=== PATIENT | female | born 1960 | race Caucasian/White ===

== ENCOUNTER 2022-02-26 12:48 | Emergency (ER) | payer MEDICARE, MEDICAID ==
[~2022-02-26] VITALS: Ht 162.6 cm; Wt 90.7 kg
[2022-02-26] MEDS ORDERED: methylPREDNISolone 125 MG (Solu-MEDROL) VIAL IVP STA (13:14)
[2022-02-26] MEDS ORDERED: cefTRIAXone 1 GM PRE-MIX 50 ML IV STA (13:14)
[2022-02-26] MEDS ORDERED: AZITHROMYCIN 250 MG TAB (ZITHROMAX) PO STA (13:14)
--- NOTE | 2022-02-26 13:14 | ED Dyspnea ---
General Chief Complaint: Cough/Cold/Flu Symptoms Stated Complaint: SOB Source of Information: Patient, Caregiver ([place] staff member as independent historian) History of Present Illness Date Seen by Provider: Feb 26, 2022 Time Seen by Provider: 12:51 Initial Comments 61-year-old female presenting with complaints of increased shortness of breath as well as nasal drainage and thick mucus. She presents with a caregiver from [facility]. The caregiver acts as an independent historian and states that the patient is noncompliant with wearing her supplemental oxygen. She also reports that the patient has been having increased shortness of breath and when they checked her O2 sat a few days ago it was 79 to 80%. They encouraged her to come be seen then but she had refused. Today since she was more short of breath and continued to have low oxygen saturation at the assisted the advised her to come out and be seen and she agreed. After lunch they went ahead and brought her here to the emergency department. The caregiver also states that she is noncompliant with using her as needed albuterol treatments. She has not had any testing for influenza or COVID since her nasal congestion and cough with shortness of breath has worsened. Patient complains of having thick nasal drainage and congestion with increased cough. She is coughing up thick sputum with green color. She denies having fever or chills, nausea, vomiting, headache, sore throat, abdominal pain, pain with urination. She states that she does have pain to her left lateral chest wall from straining to reach things in her room as she sits in her recliner. Timing/Duration: 1 Week, Increasing Severity: Moderate Activities at Onset: None Prior Episodes/Possible Cause: Chronic Episodes, Frequent Episodes Modifying Factors: Worse With Activity; Improves With Oxygen Associated Symptoms: Cough, Wheezing Allergies and Home Medications Allergies Coded Allergies: Sulfa (Sulfonamide Antibiotics) (Verified Allergy, Unknown, 02/26/22) Patient Home Medication List Home Medication List Reviewed: Yes Nirmatrelvir/Ritonavir (Paxlovid 300-100 mg Pack (Eua)) 300 Mg (150 Mg X 2)-100 Mg Tab.ds.pk, 1 EACH PO BID Prescribed by: RAFAEL UMAÑA on 02/26/22 144 Prednisone (Prednisone) 20 Mg Tab, 40 MG PO DAILY Prescribed by: RAFAEL UMAÑA on 02/26/22 1444 Review of Systems Review of Systems Constitutional: No chills, No diaphoresis, No fever EENTM: nose congestion; No ear pain, No epistaxis, No throat pain, No throat swelling Respiratory: cough, dyspnea on exertion; No hemoptysis; phlegm, short of breath; No stridor; wheezing Cardiovascular: chest pain (left lateral chest wall pain that patient reports is from straining) Gastrointestinal: No nausea, No vomiting Genitourinary: No dysuria Musculoskeletal: see HPI (muscle strain with left lateral chest wall tenderness to palpation) Skin: No change in color, No rash Psychiatric/Neurological: No Symptoms Reported Endocrine: No Symptoms Reported Past Yhvuxql-Nqrtkw-Fytcwa Hx Patient Social History Tobacco Use?: Yes Tobacco type used: Cigarettes Smoking Status: Current Everyday Smoker Substance use?: No Alcohol Use?: No Past Medical History Surgery/Hospitalization HX: COPD, Breast cancer with left mastectomy, Tobacco abuse Surgeries: Yes Breast, Vascular Surgery (Port Placement) Physical Exam Vital Signs Vital Signs - First Documented 02/26/22 12:56 Temp 36.3 Pulse 80 Resp 20 B/P (MAP) 111/73 (86) Capillary Refill : Height, Weight, BMI Height: '" Weight: lbs. oz. kg; BMI Method: General Appearance: No Apparent Distress, Obese HEENT: PERRL/EOMI, Pharynx Normal, Moist Mucous Membranes Neck: Full Range of Motion, Normal Inspection, Non Tender, Supple Respiratory: No Chest Non Tender (tender to palpation left lateral chest wall); No Respiratory Distress, Accessory Muscle Use, Decreased Breath Sounds, Rhonci; No Stridor; Wheezing Cardiovascular: Regular Rate, Rhythm, No Murmur, Normal Peripheral Pulses Gastrointestinal: Normal Bowel Sounds, No Pulsatile Mass, Non Tender, Soft Rectal: Deferred Extremity: Normal Capillary Refill, Normal Inspection, No Calf Tenderness, No Pedal Edema Neurologic/Psychiatric: Alert, Oriented x3, personal driver II-XII Norm as Tested Skin: Normal Color, Warm/Dry Focused Exam Lactate Level 02/26/22 13:18: Lactic Acid Level 0.99 Lactic Acid Level Laboratory Tests Test 02/26/22 13:18 Lactic Acid Level 0.99 MMOL/L (0.50-2.00) Progress/Results/Core Measures Results/Orders Lab Results Laboratory Tests Test 02/26/22 13:05 02/26/22 13:11 02/26/22 13:18 02/26/22 13:20 Range/Units Influenza Type A (RT-PCR) Not Detected Not Detecte Influenza Type B (RT-PCR) Not Detected Not Detecte SARS-CoV-2 RNA (RT-PCR) Detected H Not Detecte White Blood Count 8.2 4.3-11.0 10^3/uL Red Blood Count 4.53 3.80-5.11 10^6/uL Hemoglobin 15.0 11.5-16.0 g/dL Hematocrit 45 35-52 % Mean Corpuscular Volume 100 H 80-99 fL Mean Corpuscular Hemoglobin 33 25-34 pg Mean Corpuscular Hemoglobin Concent 33 32-36 g/dL Red Cell Distribution Width 13.8 10.0-14.5 % Platelet Count 248 130-400 10^3/uL Mean Platelet Volume 8.5 L 9.0-12.2 fL Immature Granulocyte % (Auto) 0 % Neutrophils (%) (Auto) 74 42-75 % Lymphocytes (%) (Auto) 15 12-44 % Monocytes (%) (Auto) 9 0-12 % Eosinophils (%) (Auto) 1 0-10 % Basophils (%) (Auto) 0 0-10 % Neutrophils # (Auto) 6.1 1.8-7.8 10^3/uL Lymphocytes # (Auto) 1.3 1.0-4.0 10^3/uL Monocytes # (Auto) 0.7 0.0-1.0 10^3/uL Eosinophils # (Auto) 0.1 0.0-0.3 10^3/uL Basophils # (Auto) 0.0 0.0-0.1 10^3/uL Immature Granulocyte # (Auto) 0.0 0.0-0.1 10^3/uL Sodium Level 137 135-145 MMOL/L Potassium Level 4.3 3.6-5.0 MMOL/L Chloride Level 95 L 98-107 MMOL/L Carbon Dioxide Level 32 21-32 MMOL/L Anion Gap 10 5-14 MMOL/L Blood Urea Nitrogen 12 7-18 MG/DL Creatinine 0.72 0.60-1.30 MG/DL Estimat Glomerular Filtration Rate 94 BUN/Creatinine Ratio 17 Glucose Level 105 70-105 MG/DL Calcium Level 9.8 8.5-10.1 MG/DL Corrected Calcium 10.0 8.5-10.1 MG/DL Magnesium Level 1.8 1.6-2.4 MG/DL Total Bilirubin 0.4 0.1-1.0 MG/DL Aspartate Amino Transf (AST/SGOT) 29 5-34 U/L Alanine Aminotransferase (ALT/SGPT) 30 0-55 U/L Alkaline Phosphatase 127 40-136 U/L Troponin I < 0.30 <0.30 NG/ML C-Reactive Protein 5.49 H <0.50 MG/DL Pro-B-Type Natriuretic Peptide 463.0 H <125.0 PG/ML Total Protein 7.4 6.4-8.2 GM/DL Albumin 3.8 3.2-4.5 GM/DL Lactic Acid Level 0.99 0.50-2.00 MMOL/L Bedside Blood Gas pH (LAB) 7.401 7.310-7.410 Bedside Blood Gas pCO2 (LAB) 49.7 41.0-51.0 mmHg Bedside Blood Gas pO2 (LAB) 66 L 80-105 mmHg Bedside Blood Gas HCO3 (LAB) 30.8 H 23.0-28.0 mmol/L POC Blood Gas Total CO2 Calc 32 H 24-29 mmol/L Bedside Bl Gas O2 Saturation (Calc) 92 L 95-98 % Bedside Arterial Blood Base Excess 6 H -2-3 mmol/L My Orders Orders - RAFAEL UMAÑA MD Cbc With Automated Diff (02/26/22 13:08) Comprehensive Metabolic Panel (02/26/22 13:08) Blood Culture (02/26/22 13:08) Chest 1 View Ap/Pa Only (02/26/22 13:08) Albuterol/Ipra Inhalation Soln (Duoneb I (02/26/22 13:15) Magnesium (02/26/22 13:08) Ekg Tracing (02/26/22 13:08) O2 (02/26/22 13:08) Ed Iv/Invasive Line Start (02/26/22 13:08) Monitor-Rhythm Ecg Trace Only (02/26/22 13:08) Crp Fs (02/26/22 13:08) Lactic Acid Analyzer (02/26/22 13:08) Svn Small Volume Nebulizer (02/26/22 13:08) Covid 19 Inhouse Test (02/26/22 13:08) Influenza A And B By Pcr (02/26/22 13:08) Isolation Central Supply Req (02/26/22 13:08) Methylprednisolone Sod Succ (Solu-Medrol (02/26/22 13:14) Ceftriaxone 1 Gm Pre-Mix (Rocephin 1 Gm (02/26/22 13:14) Azithromycin Tablet (Zithromax Tablet) (02/26/22 13:14) Probnp Fs (02/26/22 13:20) Troponin I Fs (02/26/22 13:20) Ed Admission (Communication) (02/26/22 14:03) Medications Given in ED Current Medications Medications Dose Ordered Sig/Wallace Route Start Time Stop Time Status Last Admin Dose Admin Albuterol/ Ipratropium 3 ml ONCE ONCE INH 02/26/22 13:15 02/26/22 13:16 DC 02/26/22 13:25 3 ML Vital Signs/I&O 02/26/22 02/26/22 02/26/22 02/26/22 12:56 12:56 12:56 15:04 Temp 36.3 36.7 Pulse 80 68 Resp 20 17 B/P (MAP) 111/73 (86) 157/86 Pulse Ox 92 92 94 O2 Delivery Nasal Cannula Nasal Cannula Nasal Cannula Nasal Cannula O2 Flow Rate 2.00 2.00 2.00 Progress Progress Note #1: Progress Note Patient is at risk of having life-threatening issues such as COPD exacerbation, pneumonia, pulmonary embolism, congestive heart failure, acute coronary syndrome, influenza. Will obtain nasal swab to check for influenza and COVID. Chest x-ray to evaluate for pneumonia, effusion, mass, cardiomegaly, infiltrate. CBC, chemistry, cardiac enzymes, ABG to further evaluate her breathing. Looking for signs of anemia, high white count for infection, elevated cardiac enzymes for myocardial infarction or ACS, electrolyte imbalance, renal failure, hepatic failure, acute on chronic respiratory failure. Give DuoNeb breathing treatment to help with her wheezing, cough, congestion, shortness of breath. Placed on supplemental oxygen to help raise her O2 sat above 89%. Solu-Medrol 125 mg IV x1 to help with COPD exacerbation and shortness of breath with wheezing. After obtaining blood cultures and lactic acid we will also administer Rocephin 1 g IV with Zithromax 500 mg p.o. x1 for possible community- acquired pneumonia. Progress Note #2: Time: 13:30 Progress Note On my review and personal interpretation of her 1 view chest x-ray she has increased lung markings especially on the right lower lobe. She has indwelling port on the right side she has no effusion or pneumothorax. She has no prior chest x-ray imaging for comparison. Progress Note #3: Time: 13:43 Progress Note Lab called to say that her nasal swab came back negative for influenza but she is positive for COVID. Her ABG on 3 L of supplemental oxygen showed a pH of 7.4, PCO2 of 50, PO2 of 66 for O2 sat of 92%. CBC does not show an elevated white blood cell count. She does not have anemia. Chemistry panel along with cardiac enzymes is still pending. Patient had some improvement in her oxygen saturation after being placed on supplemental O2 and given a breathing treatment. After this she came up to 90 to 92%. She has improved breathing but is still having increased work of breathing after duoneb and solumedrol. I reviewed her radiologist reading and it did not show acute infiltrate or effusion but had COPD changes present. 1359 d/w Dr. Frye, Hospitalist electron gun inspector, about admit since pt follows with a doctor from [place]. With her having continued increased work of breathing, COPD, Covid infection and O2 sat only coming up to 90-92% despite 3 Lpm O2 by nd, I felt she needed admit for increased respiratory treatments and steroids to help with her breathing from a Covid and COPD standpoint. He agreed and was willing to admit for acute on chronic respiratory failure. He requested ICU bed for admit since she had continued increased work of breathing despite supplemental oxygen, duoneb and solumedrol here in ED. I updated the patient about the plan and she was agreeable with admit. I tried to clarify with her about her Code status since she has not been admitted previously and we do not have any paperwork about her wishes. She said she would want her heart restarted and put on ventilator if she had to go through that, so will have her as a Full Code for now. She was concerned about how she would be transported back to [facility] when she is discharged and I advised her I would have the nurse check with caregiver from [facility] and if they can not transport her on Oxygen then she may need Case Management or Social Work to help arrange transport back to [facility] so that she can continue supplemental Oxygen. She asked about being allowed to smoke since she continues to smoke cigarettes and I told her that she would not be allowed to smoke in the ED or the hospital but I could order a Nicotine patch. Pt refused the Nicotine Patch. Progress Note #4: Time: 14:30 Progress Note Despite having extensive conversation with patient and explaining risks vs benefits of admit vs leaving against medical advice, the patient voiced understanding of the risks and benefits and stated she understood them but wanted to go back to [facility] and she would follow up with her doctor. Despite my best efforts to get her to change her mind she continued to refuse and was willing to sign paperwork for leaving against medical advice. Since I was not able to convince her to be admitted and she is leaving against medical advice will discharge her with steroid burst for her COPD exacerbation and send script for Paxlovid as an antiviral medicine for Covid. Give patient EUA information sheet about Paxlovid. Stressed importance of follow up and getting additional care, using her oxygen to help with her breathing, follow up with clinic for continued care. I updated the hospitalist, Dr. Frye, of patient's change of mind and decision to leave AMA. Initial ECG Impression Date: Feb 26, 2022 Initial ECG Impression Time: 13:39 Initial ECG Rate: 73 Initial ECG Rhythm: Normal Sinus Initial ECG Comparisson: No Previous ECG Available Comment On my personal review and interpretation of her electrocardiogram she has normal sinus rhythm with a heart rate of 73 bpm. WI interval [address] elevation. QT interval 361 ms with a QTc interval 387 ms. She has no prior tracing available for comparison. Diagnostic Imaging Diagonstic Imaging: Xray Plain Films/CT/US/NM/MRI: chest Comments NAME: [facility] REC#: [id number] PT STATUS: REG ER : 1960 PHYSICIAN: RAFAEL UMAÑA MD ADMIT DATE: 02/26/22/ER FS Draft Date of Exam:02/26/22 CHEST 1 VIEW AP/PA ONLY INDICATION: Cough. FINDINGS: Right IJ catheter in the lower SVC. Air trapping and COPD, chronic. There is no failure, effusion, or pneumothorax. IMPRESSION: Central line in good position. Likely COPD and air trapping with clear lungs and no acute pleural pathology. Dictated on workstation # [id number] Dict: 02/26/22 1342 Trans: 02/26/22 1345 [id number] [id number] Interpreted by: CHANEL CONTRERAS Electronically signed by: Reviewed: Reviewed by Me Critical Care Note Critical Care Total Time (minutes) 50 minutes Progress 50 minutes of critical care time was spent with the patient. Time excludes separately billable procedures. Time spent obtaining history from patient and independent source of NH caregiver, ordering tests and reviewing results, ordering interventions and reviewing response, discussion with consultants, extensive discussion with the patient about risk versus benefit of admission versus going back to the assisted, documentation in the chart. Patient was at risk of cardiorespiratory compromise and from hypoxia and increased wo rk of breathing with her acute on chronic respiratory failure with COVID and COPD. Departure Impression Primary Impression: Acute on chronic respiratory failure with hypoxia Additional Impressions: COVID-19 Hypoxia COPD with exacerbation Upper respiratory infection with cough and congestion Shortness of breath Disposition: 07 AGAINST MEDICAL ADVICE Condition: Against Medical Advice Departure-Patient Inst. Decision time for Depature: 14:40 Referrals: HENRY ACUNA MD (PCP) Primary Care Physician Patient Instructions: COPD Exacerbation, Adult ED, COVID-19 ED, How to Use a Metered Dose Inhaler ED, How to Use a Nebulizer ED, Leaving Against Medical Advice, Nirmatrelvir and Ritonavir FDA Fact Sheet Add. Discharge Instructions: You are signing out Against Medical Advice from the Emergency Department and refusing admission to the hospital for your low oxygen, COVID 19 infection, and COPD exacerbation. You should seek medical care for worsening symptoms and follow up as soon as possible about your breathing and low oxygen. You should continue on your home medicines and use your Albuterol treatments every 4 hours to help with your breathing. Take Mucinex to help with congestion and cough. You could take the Paxlovid (antiviral medicine for Covid) and Prednisone to try and help with your COPD and breathing. All discharge instructions reviewed with patient and/or family. Voiced understanding. Scripts Prednisone (Prednisone) 20 Mg Tab 40 MG PO DAILY for COPD exacerbation/COVID for 5 Days, #10 TAB 0 Refills Prov: RAFAEL UMAÑA MD 02/26/22 Nirmatrelvir/Ritonavir (Paxlovid 300-100 mg Pack (Eua)) 300 Mg (150 Mg X 2)-100 Mg Tab.ds.pk 1 EACH PO BID for COVID for 5 Days, #1 PKG 0 Refills Take as directed on package Prov: RAFAEL UMAÑA MD 02/26/22 RAFAEL UMAÑA MD Feb 26, 2022 13:14
[2022-02-26] MEDS ORDERED: RT-ALBUTEROL/IPRATROPIUM 3 ML (DUONEB) VIAL INH ONE (13:15)
[2022-02-26 13:28] LABS: BASOPHILS % (AUTO) 0 % (0-10); EOSINOPHILS # (AUTO) 0.1 10^3/uL (0.0-0.3); EOSINOPHILS % (AUTO) 1 % (0-10); HEMATOCRIT 45 % (35-52); LYMPHOCYTES # (AUTO) 1.3 10^3/uL (1.0-4.0); LYMPHOCYTES % (AUTO) 15 % (12-44); MEAN CORPUSCULAR HEMOGLOBIN 33 pg (25-34); MEAN CORPUSCULAR HGB CONC 33 g/dL (32-36); MEAN CORPUSCULAR VOLUME 100 fL (80-99); MEAN PLATELET VOLUME 8.5 fL (9.0-12.2); MONOCYTES # (AUTO) 0.7 10^3/uL (0.0-1.0); MONOCYTES % (AUTO) 9 % (0-12); NEUTROPHILS # (AUTO) 6.1 10^3/uL (1.8-7.8); NEUTROPHILS % (AUTO) 74 % (42-75); PLATELET COUNT 248 10^3/uL (130-400); WHITE BLOOD COUNT 8.2 10^3/uL (4.3-11.0)
[2022-02-26 13:45] LABS: ALBUMIN 3.8 GM/DL (3.2-4.5); BILIRUBIN,TOTAL 0.4 MG/DL (0.1-1.0); CALCIUM 9.8 MG/DL (8.5-10.1); CREATININE SERUM 0.72 MG/DL (0.60-1.30); MAGNESIUM 1.8 MG/DL (1.6-2.4); POTASSIUM 4.3 MMOL/L (3.6-5.0); TOTAL PROTEIN 7.4 GM/DL (6.4-8.2)
--- NOTE | 2022-02-26 13:45 | Diagnostic Imaging Report ---
INDICATION: Cough. FINDINGS: Right IJ catheter in the lower SVC. Air trapping and COPD, chronic. There is no failure, effusion, or pneumothorax. IMPRESSION: Central line in good position. Likely COPD and air trapping with clear lungs and no acute pleural pathology. Dictated by: Dictated on workstation # [id number]
[2022-02-26] MEDS ORDERED: NIRM1TAB PO (14:44)
[2022-02-26] MEDS ORDERED: PRD20T PO (14:44)
[2022-02-26 15:04] VITALS: BP 157/86
== END 2022-02-26 15:04 | disposition left against medical advice (07) ==
LOC: ER FS 12:50
DX: U07.1 COVID-19 (principal); J96.21 Acute and chronic respiratory failure with hypoxia; J44.1 Chronic obstructive pulmonary disease with (acute) exacerbation; J06.9 Acute upper respiratory infection, unspecified; F17.210 Nicotine dependence, cigarettes, uncomplicated; Z99.81 Dependence on supplemental oxygen
CPT/HCPCS: 36415; 71045; 80053; 82805; 83605; 83735; 83880; 84484; 85025; 86141; 87040; 87636; 93005; 93041

== ENCOUNTER → 2022-04-23 | Outpatient (CLI) | payer MEDICARE, MEDICAID ==
[~2022-04-23] MED LIST: NIRM1TAB PO; PRD20T PO
--- NOTE | 2022-04-23 15:59 | Diagnostic Imaging Report ---
INDICATION: Back pain EXAM: PA and lateral chest Heart size and pulmonary vascularity are normal. The lungs are clear. There is a tiny left effusion. There are old rib fractures of the right thoracic cage. Right IJ Port-A-Cath tip projects over the SVC. There are compression fractures of T6 and T7 and mild loss of height of T10. IMPRESSION: Thoracic compression fractures. Old right rib fractures. Small left pleural effusion. Dictated by: Dictated on workstation # [id number]
--- NOTE | 2022-04-23 15:59 | Diagnostic Imaging Report ---
INDICATION: Back pain. EXAMINATION: Thoracic spine. FINDINGS: AP and lateral views of the thoracic spine show compression fractures in the upper thoracic spine at T6 and T7. There is also slight loss of height of T10. IMPRESSION: Compression fractures of T6, T7 and T10 of indeterminate age. Dictated by: Dictated on workstation # [id number]
--- NOTE | 2022-04-23 15:59 | Diagnostic Imaging Report ---
INDICATION: Right rib pain. FINDINGS: Three views of the right ribs show what appear to be old fractures of the right mid lateral thoracic cage. There is no acute displaced rib fracture. There is no effusion or pneumothorax. IMPRESSION: Old healed rib fracture of the right mid thoracic cage. Dictated by: Dictated on workstation # [id number]
--- NOTE | 2022-04-23 16:00 | Diagnostic Imaging Report ---
INDICATION: Left rib pain. FINDINGS: Two views of the left ribs show no displaced fracture. There is a tiny left effusion. IMPRESSION: Small left pleural effusion. There is no rib fracture seen. Dictated by: Dictated on workstation # [id number]
== END ==
LOC: RAD FS 14:43
PROVIDERS: ATTEND Family Medicine
DX: M48.54XA Collapsed vertebra, not elsewhere classified, thoracic region, initial encounter for fracture (principal); J90 Pleural effusion, not elsewhere classified; Z87.81 Personal history of (healed) traumatic fracture
CPT/HCPCS: 71046; 71100; 72070

== ENCOUNTER 2022-05-04 10:09 | Inpatient (IN) | payer MEDICARE, MEDICAID ==
[~2022-05-04] VITALS: Ht 162.6 cm; Wt 99.2 kg
[2022-05-04] VITALS (7 sets, daily range): BP systolic 113–138; BP diastolic 64–98
--- NOTE | 2022-05-04 10:22 | ED Dyspnea ---
General Stated Complaint: SOB Source of Information: Patient, EMS Exam Limitations: No Limitations History of Present Illness Date Seen by Provider: May 04, 2022 Time Seen by Provider: 10:05 Initial Comments 62-year-old female presents via EMS for shortness of breath. She resides in a local assisted living facility and they have apparently been trying to convince her to come to the hospital since Wednesday. Record review shows that she has been here previously and refused all treatments and was ultimately transported back to her residence. She is relatively uncooperative with exam and history. When asked how long she has been sick she states she does not know. She denies any chest pain. She does endorse that she has been short of breath. She does wear oxygen 3 to 4 L via nasal cannula chronically for COPD. When asked if she has had fevers she says "probably." She was given Solu-Medrol and 40mg laxix IV en route. Her initial oxygen saturation according to EMS was around 75%. All other systems reviewed and negative except documented per HPI. Voice recognition software was used to help create this chart Allergies and Home Medications Allergies Coded Allergies: Sulfa (Sulfonamide Antibiotics) (Verified Allergy, Unknown, 02/26/22) Patient Home Medication List Home Medication List Reviewed: Yes Nirmatrelvir/Ritonavir (Paxlovid 300-100 mg Pack (Eua)) 300 Mg (150 Mg X 2)-100 Mg Tab.ds.pk, 1 EACH PO BID Prescribed by: RAFAEL GOODRT on 02/26/22 144 Prednisone (Prednisone) 20 Mg Tab, 40 MG PO DAILY Prescribed by: RAFAEL GOODRT on 02/26/22 1444 Review of Systems Review of Systems Constitutional: fever Past Sicdhnb-Abyyks-Cylhxi Hx Patient Social History Tobacco Use?: Yes Use of E-Cig and/or Vaping dev: No Substance use?: No Alcohol Use?: No Past Medical History Surgery/Hospitalization HX: COPD, Breast cancer with left mastectomy, Tobacco abuse Surgeries: Yes Breast, Vascular Surgery Family Medical History Reviewed Nursing Family Hx No Pertinent Family Hx Physical Exam Vital Signs Vital Signs - First Documented 05/04/22 10:09 Temp 36.5 Pulse 90 Resp 24 B/P (MAP) 144/118 (127) Pulse Ox 94 O2 Delivery Nasal Cannula O2 Flow Rate 3.00 Capillary Refill : Height, Weight, BMI Height: '" Weight: lbs. oz. kg; 34.00 BMI Method: General Appearance: Moderate Distress HEENT: Normal ENT Inspection, Other Neck: Normal Inspection, Non Tender (Dry mucous membranes), Supple Respiratory: Respiratory Distress (Moderate respiratory distress with use of accessory muscles, wheezing and rhonchi.) Cardiovascular: Regular Rate, Rhythm, No Murmur Gastrointestinal: Normal Bowel Sounds, No Organomegaly, No Pulsatile Mass, Non Tender, Soft Extremity: Normal Capillary Refill, Normal Inspection, Normal Range of Motion, Non Tender, No Calf Tenderness Neurologic/Psychiatric: Alert, Oriented x3 Skin: Normal Color, Warm/Dry Focused Exam Lactate Level 05/04/22 10:20: Lactic Acid Level 0.77 Lactic Acid Level Laboratory Tests Test 05/04/22 10:20 Lactic Acid Level 0.77 MMOL/L (0.50-2.00) Progress/Results/Core Measures Results/Orders Lab Results Laboratory Tests Test 05/04/22 10:20 05/04/22 10:32 05/04/22 10:37 Range/Units White Blood Count 8.9 4.3-11.0 10^3/uL Red Blood Count 4.31 3.80-5.11 10^6/uL Hemoglobin 14.3 11.5-16.0 g/dL Hematocrit 45 35-52 % Mean Corpuscular Volume 104 H 80-99 fL Mean Corpuscular Hemoglobin 33 25-34 pg Mean Corpuscular Hemoglobin Concent 32 32-36 g/dL Red Cell Distribution Width 13.9 10.0-14.5 % Platelet Count 226 130-400 10^3/uL Mean Platelet Volume 8.6 L 9.0-12.2 fL Immature Granulocyte % (Auto) 0 % Neutrophils (%) (Auto) 66 42-75 % Lymphocytes (%) (Auto) 23 12-44 % Monocytes (%) (Auto) 9 0-12 % Eosinophils (%) (Auto) 2 0-10 % Basophils (%) (Auto) 1 0-10 % Neutrophils # (Auto) 5.9 1.8-7.8 10^3/uL Lymphocytes # (Auto) 2.1 1.0-4.0 10^3/uL Monocytes # (Auto) 0.8 0.0-1.0 10^3/uL Eosinophils # (Auto) 0.1 0.0-0.3 10^3/uL Basophils # (Auto) 0.1 0.0-0.1 10^3/uL Immature Granulocyte # (Auto) 0.0 0.0-0.1 10^3/uL Sodium Level 142 135-145 MMOL/L Potassium Level 4.1 3.6-5.0 MMOL/L Chloride Level 98 98-107 MMOL/L Carbon Dioxide Level 34 H 21-32 MMOL/L Anion Gap 10 5-14 MMOL/L Blood Urea Nitrogen 18 7-18 MG/DL Creatinine 0.62 0.60-1.30 MG/DL Estimat Glomerular Filtration Rate 99 BUN/Creatinine Ratio 29 Glucose Level 121 H 70-105 MG/DL Lactic Acid Level 0.77 0.50-2.00 MMOL/L Calcium Level 9.6 8.5-10.1 MG/DL Corrected Calcium 9.7 8.5-10.1 MG/DL Total Bilirubin 0.3 0.1-1.0 MG/DL Aspartate Amino Transf (AST/SGOT) 29 5-34 U/L Alanine Aminotransferase (ALT/SGPT) 24 0-55 U/L Alkaline Phosphatase 138 H 40-136 U/L Troponin I < 0.30 <0.30 NG/ML Pro-B-Type Natriuretic Peptide 125.0 H <125.0 PG/ML Total Protein 7.9 6.4-8.2 GM/DL Albumin 3.9 3.2-4.5 GM/DL Blood Gas Puncture Site R RADIAL Blood Gas Patient Temperature 36.5 Arterial Blood pH 7.35 L 7.37-7.43 Arterial Blood Partial Pressure CO2 75 *H 35-45 MMHG Arterial Blood Partial Pressure O2 59 L 79-93 MMHG Arterial Blood HCO3 41 *H 23-27 MMOL/L Arterial Blood Total CO2 43.7 *H 21.0-31.0 MMOL/L Arterial Blood Oxygen Saturation 89 L 94-100 % Arterial Blood Base Excess 12.7 H -2.5-2.5 MMOL/L Isidro Test NA Blood Gas Ventilator Setting NO Blood Gas Inspired Oxygen 3L Influenza Type A (RT-PCR) Not Detected Not Detecte Influenza Type B (RT-PCR) Not Detected Not Detecte SARS-CoV-2 RNA (RT-PCR) Not Detected Not Detecte My Orders Orders - GILA GREENE DO Cbc With Automated Diff (05/04/22 10:16) Comprehensive Metabolic Panel (05/04/22 10:16) Blood Culture (05/04/22 10:16) Chest 1 View Ap/Pa Only (05/04/22 10:16) Ed Iv/Invasive Line Start (05/04/22 10:16) Ekg Tracing (05/04/22 10:16) Vital Signs Adult Sepsis Patie Q15M (05/04/22 10:16) O2 (05/04/22 10:16) Lactic Acid Analyzer (05/04/22 10:16) Covid 19 Inhouse Test (05/04/22 10:16) Troponin I Fs (05/04/22 10:16) Influenza A And B By Pcr (05/04/22 10:16) Albuterol/Ipra Inhalation Soln (Duoneb I (05/04/22 10:30) Svn Small Volume Nebulizer (05/04/22 10:16) Procalcitonin (Pct) (05/04/22 10:17) Arterial Blood Gas (05/04/22 10:22) Catheter(Urinary) Insert & Ass 03,15 (05/04/22 10:23) Probnp Fs (05/04/22 10:16) Medications Given in ED Current Medications Medications Dose Ordered Sig/Wallcae Route Start Time Stop Time Status Last Admin Dose Admin Albuterol/ Ipratropium 3 ml ONCE ONCE INH 05/04/22 10:30 05/04/22 10:31 DC 05/04/22 10:25 3 ML Vital Signs/I&O 05/04/22 05/04/22 05/04/22 05/04/22 10:09 10:09 10:38 10:40 Temp 36.5 36.5 Pulse 90 90 Resp 24 24 B/P (MAP) 144/118 (127) 144/118 Pulse Ox 94 94 94 O2 Delivery Nasal Cannula Room Air Nasal Cannula Room Air O2 Flow Rate 3.00 3.00 3.00 3.00 Comment Sinus rhythm at 95 bpm. Normal intervals. Normal axis. No ST or T wave normalities. No ectopy. Baseline interference makes it difficult to interpret Departure Communication (Admissions) Spoke to Dr. Bowers at 1135. She accepts the patient in admission. Hospital course is as follows. Patient arrived in respiratory distress, somewhat confused but alert. She was given a breathing treatment and had significant improvement in her symptoms though she is still retracting her respiratory rate is down. Her oxygen saturation is better. She is on 4 to 5 L via nasal cannula and tolerating this well. We did put it in her mouth as it did not appear effective in her nose that she was mostly breathing through her mouth her chest x-ray is clear ( i have independently reviewed images), white blood cell count is normal with no shifts and her lactic acid is negative. I do not think there is an infectious source I think this is purely COPD. Her COVID and flu swabs are negative as well. Her blood gas shows hypercarbia but relatively compensated pH, I think mostly these changes are chronic or subacute. She received Solu-Medrol via EMS prior to arrival. No indication for antibiotics at this time. No evidence of cardiac source. My independent review the EKG shows no ischemia and her troponin is negative. We are pending transport to [place] for inpatient care for COPD. Impression Primary Impression: COPD exacerbation Disposition: 30 STILL A PATIENT Condition: Stable Admissions Decision to Admit Reason: Admit from ER (General) Departure-Patient Inst. Referrals: SELF,DOMENICO ORTA (PCP) Primary Care Physician GILA GREENE DO May 04, 2022 10:22
[2022-05-04] MEDS ORDERED: RT-ALBUTEROL/IPRATROPIUM 3 ML (DUONEB) VIAL INH ONE (10:30)
[2022-05-04 10:40] LABS: BASOPHILS # (AUTO) 0.1 10^3/uL (0.0-0.1); BASOPHILS % (AUTO) 1 % (0-10); EOSINOPHILS # (AUTO) 0.1 10^3/uL (0.0-0.3); EOSINOPHILS % (AUTO) 2 % (0-10); HEMATOCRIT 45 % (35-52); HEMOGLOBIN 14.3 g/dL (11.5-16.0); LYMPHOCYTES # (AUTO) 2.1 10^3/uL (1.0-4.0); LYMPHOCYTES % (AUTO) 23 % (12-44); MEAN CORPUSCULAR HEMOGLOBIN 33 pg (25-34); MEAN CORPUSCULAR HGB CONC 32 g/dL (32-36); MEAN CORPUSCULAR VOLUME 104 fL (80-99); MEAN PLATELET VOLUME 8.6 fL (9.0-12.2); MONOCYTES # (AUTO) 0.8 10^3/uL (0.0-1.0); MONOCYTES % (AUTO) 9 % (0-12); NEUTROPHILS # (AUTO) 5.9 10^3/uL (1.8-7.8); NEUTROPHILS % (AUTO) 66 % (42-75); PLATELET COUNT 226 10^3/uL (130-400); WHITE BLOOD COUNT 8.9 10^3/uL (4.3-11.0)
[2022-05-04 10:52] LABS: ALANINE AMINOTRANSFERASE 24 U/L (0-55); ALKALINE PHOSPHATASE 138 U/L (40-136); BILIRUBIN,TOTAL 0.3 MG/DL (0.1-1.0); BUN/CREATININE RATIO 29; CALCIUM 9.6 MG/DL (8.5-10.1); CARBON DIOXIDE 34 MMOL/L (21-32); CHLORIDE 98 MMOL/L (98-107); CREATININE SERUM 0.62 MG/DL (0.60-1.30); GFR ESTIMATED 99; GLUCOSE 121 MG/DL (70-105); POTASSIUM 4.1 MMOL/L (3.6-5.0); SODIUM 142 MMOL/L (135-145)
[2022-05-04 10:53] LABS: ALBUMIN 3.9 GM/DL (3.2-4.5); TOTAL PROTEIN 7.9 GM/DL (6.4-8.2)
--- NOTE | 2022-05-04 10:56 | Diagnostic Imaging Report ---
INDICATION: Cough, shortness of breath, dyspnea, and wheezing. TECHNIQUE: Single view chest at 10:34 AM. CORRELATION STUDY: 04/23/2022. FINDINGS: Right IJ [id number] catheter tip at the cavoatrial junction. Heart size and mediastinum are unremarkable. Lung merrill are hyperinflated but overall clear. Minimal discoid atelectasis at the lung bases. Slight blunting of the costophrenic angles may reflect trace pleural effusions and/or pleural thickening. There appear to be old healed right-sided rib fractures. IMPRESSION: Hyperinflated lung merrill. Questioned trace pleural effusion. No infiltrate. Dictated by: Dictated on workstation # [id number]
[2022-05-04 10:59] LABS: ABG BASE EXCESS 12.7 MMOL/L (-2.5-2.5); ABG PH 7.35 (7.37-7.43); ABG PO2 59 MMHG (79-93)
[2022-05-04 11:00] LABS: ABG OXYGEN SATURATION 89 % (94-100); INSPIRED O2 3L; PATIENT TEMP 36.5; VENTILATOR NO
[2022-05-04 11:02] LABS: ABG PCO2 75 MMHG (35-45); ABG TCO2 43.7 MMOL/L (21.0-31.0)
[2022-05-04] MEDS ORDERED: GUAI120013 PO (15:25)
[2022-05-04] MEDS ORDERED: CITA20TA9 PO (15:25)
[2022-05-04] MEDS ORDERED: POTA10TA PO (15:25)
[2022-05-04] MEDS ORDERED: MUPI22OI2 TOP (15:25)
[2022-05-04] MEDS ORDERED: ASCO-262 PO (15:25)
[2022-05-04] MEDS ORDERED: BUDE10.2 INH (15:25)
[2022-05-04] MEDS ORDERED: ALBU18HF2 INH (15:25)
[2022-05-04] MEDS ORDERED: MAGN400T39 PO (15:25)
[2022-05-04] MEDS ORDERED: ATEN100T PO (15:25)
[2022-05-04] MEDS ORDERED: FURO40TA4 PO (15:25)
[2022-05-04] MEDS ORDERED: MULT-1136 PO (15:25)
[2022-05-04] MEDS ORDERED: CALC-192 PO (15:25)
[2022-05-04] MEDS ORDERED: CLOT15CR28 TP (15:25)
[2022-05-04] MEDS ORDERED: DIPH25TA65 PO (15:25)
[2022-05-04] MEDS ORDERED: ATOR40TA70 PO (15:25)
[2022-05-04] MEDS ORDERED: GABA-486 PO (15:25)
[2022-05-04] MEDS ORDERED: OMEP40CA6 PO (15:25)
[2022-05-04] MEDS ORDERED: OXYC1TAB11 PO (15:25)
[2022-05-04] MEDS ORDERED: RT-ALBUTEROL/IPRATROPIUM 3 ML (DUONEB) VIAL INH PRN (15:30)
[2022-05-04] MEDS: cefTRIAXone 1 GM PRE-MIX 50 ML IV SCH (17:30)
[2022-05-04] MEDS ORDERED: AZITHROMYCIN INJECTION 500 MG in NS (IVPB) 250 ML IV NR (17:30)
[2022-05-04] MEDS ORDERED: LORazepam 0.5 MG (ATIVAN) TABLET PO PRN (19:30)
[2022-05-04] MEDS: GABAPENTIN 100 MG (NEURONTIN) CAP PO SCH (20:03)
[2022-05-04] MEDS: oxyCODONE/APAP 5/325MG (PERCOCET 5) TABLET PO SCH (20:03)
[2022-05-04] MEDS ORDERED: NON-FORMULARY MEDICATION 1 EA EA (Budesonide/Formoterol Fumarate (Symbicort 160-4.5 Mcg In INH SCH (21:00)
[2022-05-04] MEDS: RT-ALBUTEROL/IPRATROPIUM 3 ML (DUONEB) VIAL INH SCH (21:36)
[2022-05-05] VITALS (10 sets, daily range): BP systolic 116–151; BP diastolic 59–68
[2022-05-05 05:09] LABS: BASOPHILS % (AUTO) 0 % (0-10); EOSINOPHILS % (AUTO) 0 % (0-10); HEMATOCRIT 39 % (35-52); HEMOGLOBIN 12.5 g/dL (11.5-16.0); LYMPHOCYTES # (AUTO) 1.2 10^3/uL (1.0-4.0); LYMPHOCYTES % (AUTO) 19 % (12-44); MEAN CORPUSCULAR HEMOGLOBIN 33 pg (25-34); MEAN CORPUSCULAR HGB CONC 32 g/dL (32-36); MEAN CORPUSCULAR VOLUME 102 fL (80-99); MEAN PLATELET VOLUME 8.7 fL (9.0-12.2); MONOCYTES # (AUTO) 0.5 10^3/uL (0.0-1.0); MONOCYTES % (AUTO) 7 % (0-12); NEUTROPHILS # (AUTO) 4.9 10^3/uL (1.8-7.8); NEUTROPHILS % (AUTO) 74 % (42-75); PLATELET COUNT 211 10^3/uL (130-400); WHITE BLOOD COUNT 6.6 10^3/uL (4.3-11.0)
[2022-05-05 05:27] LABS: CALCIUM 9.7 MG/DL (8.5-10.1); CREATININE SERUM 0.66 MG/DL (0.60-1.30); POTASSIUM 3.9 MMOL/L (3.6-5.0)
[2022-05-05] MEDS: RT-ALBUTEROL/IPRATROPIUM 3 ML (DUONEB) VIAL INH SCH ×5 (06:51→23:00)
[2022-05-05] MEDS ORDERED: CATHETER FLUSH 10 ML SYR IV PRN (07:15)
[2022-05-05] MEDS ORDERED: NON-FORMULARY MEDICATION 1 EA EA (Atenolol 100 MG) PO SCH (09:00)
[2022-05-05] MEDS: AZITHROMYCIN INJECTION 250 MG in NS (IVPB) 250 ML IV SCH (09:06)
[2022-05-05] MEDS: ATENOLOL 25 MG (TENORMIN) TAB PO SCH (09:07)
[2022-05-05] MEDS: oxyCODONE/APAP 5/325MG (PERCOCET 5) TABLET PO SCH ×2 (09:07→20:40)
[2022-05-05] MEDS: GABAPENTIN 100 MG (NEURONTIN) CAP PO SCH ×2 (09:07→20:39)
--- NOTE | 2022-05-05 09:38 | History & Physical ---
[facility] 05[facility] 0938: History of Present Illness History of Present Illness Reason for visit/HPI 62 yo F presented to the [facility] ED via EMS for SOB. She arrived in respiratory distress and somewhat confused. O2 sats 75% with EMS, was given lasix and solumedrol. She received a breathing treatment and was put on 4-5 L via NC in the ER which significantly improved symptoms and O2 sats. CXR at that time did not show consolidations, COVID and flu negative, EKG no ischemia and troponin negative. Today she reports she lives at an assisted living facility and has been feeling ill for a few days. She does use oxygen at 3-4 L via nasal cannula chronically for COPD. Notes she is only able to walk a few steps before becoming short of breath and needing to take a break. Denies pain today. She did not tolerate the Bipap mask and was switched to Vapotherm. Date of Admission May 04, 2022 at 12:59 Date Seen by a Provider: May 05, 2022 Time Seen by a Provider: 09:36 I consulted on this patient on 05/05/22 09:36 Attending Physician Rodolfo Ward MD Admitting Physician Admitting Physician: Jaime Michelle MD Attending Physician: Jaime Michelle MD Consult Allergies and Home Medications Allergies Coded Allergies: Sulfa (Sulfonamide Antibiotics) (Verified Allergy, Unknown, 02/26/22) Patient Home Medication List Home Medication List Reviewed: Yes Albuterol Sulfate (Ventolin Hfa) 90 Mcg Hfa.aer.ad, 2 PUFF INH Q4H PRN for SHORTNESS OF BREATH, (Reported) Entered as Reported by: ALEJANDRA YOUNG on 05/04/221524 Last Action: Reviewed Ascorbate Calcium (Vitamin C) 500 Mg Tablet, 500 MG PO DAILY, (Reported) Entered as Reported by: ALEJANDRA YOUNG on 05/04/221524 Last Action: Reviewed Atenolol (Atenolol) 100 Mg Tablet, 100 MG PO DAILY, (Reported) Entered as Reported by: ALEJANDRA YOUNG on 05/04/221524 Last Action: Converted Atorvastatin Calcium (Atorvastatin Calcium) 40 Mg Tablet, 40 MG PO HS, (Reported) Entered as Reported by: ALEJANDRA YOUNG on 05/04/221524 Last Action: Continued Budesonide/Formoterol Fumarate (Symbicort 160-4.5 Mcg Inhaler) 160 Mcg-4.5 Mcg/Actuation Hfa.aer.ad, 2 PUFF INH BID, (Reported) Entered as Reported by: ALEJANDRA YOUNG on 05/04/221524 Last Action: Converted Calcium Carbonate/Vitamin D3 (Calcium 600 + Vit D3 Tablet) 600 Mg Calcium-10 Mcg (400 Unit) Tablet, 2 EACH PO DAILY, (Reported) Entered as Reported by: ALEJANDRA YOUNG on 05/04/221524 Last Action: Reviewed Citalopram Hydrobromide (Citalopram HBr) 20 Mg Tablet, 20 MG PO DAILY, (Reported) Entered as Reported by: ALEJANDRA YOUNG on 05/04/221524 Last Action: Continued Clotrimazole (Clotrimazole) 1 % Cream..g., 1 APPLIC TP DAILY, (Reported) Entered as Reported by: ALEJANDRA YOUNG on 05/04/221524 Last Action: Reviewed Diphenhydramine HCl (Benadryl Allergy) 25 Mg Tablet, 25-50 MG PO BID PRN for ALLERGY SYMPTOMS, (Reported) Entered as Reported by: ALEJANDRA YOUNG on 05/04/221524 Last Action: Reviewed Furosemide (Furosemide) 40 Mg Tablet, 40 MG PO DAILY, (Reported) Entered as Reported by: ALEJANDRA YOUNG on 05/04/221524 Last Action: Reviewed Gabapentin (Gabapentin) 100 Mg Capsule, 100 MG PO BID, (Reported) Entered as Reported by: ALEJANDRA YOUNG on 05/04/221524 Last Action: Continued Guaifenesin (Mucinex) 1,200 Mg Tab.er.12h, 600 MG PO BID, (Reported) Entered as Reported by: ALEJANDRA YOUNG on 05/04/221524 Last Action: Reviewed Magnesium Oxide (Magnesium) 400 Mg Magnesium Tablet, 400 MG PO DAILY, (Reported) Entered as Reported by: ALEJANDRA YOUNG on 05/04/221524 Last Action: Reviewed Multivitamin (Multivitamin) 1 Each Tablet, 1 EACH PO DAILY, (Reported) Entered as Reported by: ALEJANDRA YOUNG on 05/04/221524 Last Action: Reviewed Mupirocin (Mupirocin) 2 % Oint...g., 1 APPLIC TOP TID, (Reported) Entered as Reported by: ALEJANDRA YOUNG on 05/04/221524 Last Action: Reviewed Omeprazole (Omeprazole) 40 Mg Capsule.dr, 40 MG PO DAILY, (Reported) Entered as Reported by: ALEJANDRA YOUNG on 05/04/221524 Last Action: Reviewed Oxycodone HCl/Acetaminophen (Oxycodone-Acetaminophen 5-325) 5 Mg-325 Mg Tablet, 1 EA PO BID, (Reported) Entered as Reported by: ALEJANDRA YOUNG on 05/04/221524 Last Action: Continued Potassium Chloride (K-Tab ER) 10 Meq Tablet.er, 10 MEQ PO DAILY, (Reported) Entered as Reported by: ALEJANDRA YOUNG on 05/04/221524 Last Action: Reviewed Discontinued Medications Nirmatrelvir/Ritonavir (Paxlovid 300-100 mg Pack (Eua)) 300 Mg (150 Mg X 2)-100 Mg Tab.ds.pk, 1 EACH PO BID Discontinued Reason: No Longer Taking Prescribed by: RAFAEL UMAÑA on 02/26/221443 Last Action: Discontinued Prednisone (Prednisone) 20 Mg Tab, 40 MG PO DAILY Discontinued Reason: No Longer Taking Prescribed by: RAFAEL GOODRT on 02/26/221443 Last Action: Discontinued Past Ttbyupx-Bvunee-Apstmz Hx Patient Social History Tobacco Use?: Yes Tobacco type used: Cigarettes Smoking Status: Current Everyday Smoker Use of E-Cig and/or Vaping dev: No Substance use?: No Alcohol Use?: No Pt feels they are or have been: No Immunizations Up To Date Date of Influenza Vaccine: Dec 04, 2021 Current Status status: No Communicates: Verbally Primary Language: Dj[place]ian Preferred Spoken Language: [place]ian Is interpretation needed?: No Past Medical History Surgeries: Breast, Vascular Surgery COPD Family Medical History Reviewed Nursing Family Hx No Pertinent Family Hx Review of Systems Constitutional: No chills, No fever Respiratory: dyspnea on exertion, short of breath Cardiovascular: No chest pain, No edema Gastrointestinal: No abdominal pain, No nausea Physical Exam Vital Signs Vital Signs - First Documented 05/04/22 05/04/22 10:09 15:25 Temp 36.5 Pulse 90 Resp 24 B/P (MAP) 144/118 (127) Pulse Ox 94 O2 Delivery Nasal Cannula O2 Flow Rate 3.00 FiO2 40 Capillary Refill : Less Than 3 Seconds Height, Weight, BMI Height: '" Weight: lbs. oz. kg; 30.97 BMI Method: General Appearance: Chronically ill, Obese HEENT: PERRL/EOMI, Moist Mucous Membranes Respiratory: Chest Non Tender, Crackles, Other (Vapotherm) Cardiovascular: Regular Rate, Rhythm, No Edema, No Murmur, Normal Peripheral Pulses Gastrointestinal: Normal Bowel Sounds, Non Tender, Soft Extremity: Normal Capillary Refill, No Pedal Edema Neurologic/Psychiatric: Alert, Oriented x3 Skin: Normal Color, Warm/Dry Assessment/Plan Assessment and Plan 62F admitted with acute on chronic respiratory failure Acute on chronic respiratory failure Acute exacerbation of COPD - Titrate O2 support as tolerated, currently Vapotherm at 60% - IV steroids, abx - Breathing treatments - CXR consistent with emphysema, no acute infiltrate - Start incentive spirometry Elevated BNP - Order echo for further evaluation as there is no record of one being completed Generalized deconditioning - PT ordered Admission Diagnosis Acute on chronic respiratory failure Admission Status: Inpatient Order (span 2 midnights) Reason for Inpatient Admission: Oxygen therapy JAIME MICHELLE MD 05/05/22 2319: Allergies and Home Medications Allergies Coded Allergies: Sulfa (Sulfonamide Antibiotics) (Verified Allergy, Unknown, 02/26/22) Patient Home Medication List Home Medication List Reviewed: Yes Albuterol Sulfate (Ventolin Hfa) 90 Mcg Hfa.aer.ad, 2 PUFF INH Q4H PRN for SHORTNESS OF BREATH, (Reported) Entered as Reported by: ALEJANDRA YOUNG on 05/04/221524 Last Action: Reviewed Ascorbate Calcium (Vitamin C) 500 Mg Tablet, 500 MG PO DAILY, (Reported) Entered as Reported by: ALEJANDRA YOUNG on 05/04/221524 Last Action: Reviewed Atenolol (Atenolol) 100 Mg Tablet, 100 MG PO DAILY, (Reported) Entered as Reported by: ALEJANDRA YOUNG on 05/04/221524 Last Action: Converted Atorvastatin Calcium (Atorvastatin Calcium) 40 Mg Tablet, 40 MG PO HS, (Reported) Entered as Reported by: ALEJANDRA YOUNG on 05/04/221524 Last Action: Continued Budesonide/Formoterol Fumarate (Symbicort 160-4.5 Mcg Inhaler) 160 Mcg-4.5 Mcg/Actuation Hfa.aer.ad, 2 PUFF INH BID, (Reported) Entered as Reported by: ALEJANDRA YOUNG on 05/04/221524 Last Action: Converted Calcium Carbonate/Vitamin D3 (Calcium 600 + Vit D3 Tablet) 600 Mg Calcium-10 Mcg (400 Unit) Tablet, 2 EACH PO DAILY, (Reported) Entered as Reported by: ALEJANDRA YOUNG on 05/04/221524 Last Action: Reviewed Citalopram Hydrobromide (Citalopram HBr) 20 Mg Tablet, 20 MG PO DAILY, (Reported) Entered as Reported by: ALEJANDRA YOUNG on 05/04/221524 Last Action: Continued Clotrimazole (Clotrimazole) 1 % Cream..g., 1 APPLIC TP DAILY, (Reported) Entered as Reported by: ALEJANDRA YOUNG on 05/04/221524 Last Action: Reviewed Diphenhydramine HCl (Benadryl Allergy) 25 Mg Tablet, 25-50 MG PO BID PRN for ALLERGY SYMPTOMS, (Reported) Entered as Reported by: ALEJANDRA YOUNG on 05/04/221524 Last Action: Reviewed Furosemide (Furosemide) 40 Mg Tablet, 40 MG PO DAILY, (Reported) Entered as Reported by: ALEJANDRA YOUNG on 05/04/221524 Last Action: Reviewed Gabapentin (Gabapentin) 100 Mg Capsule, 100 MG PO BID, (Reported) Entered as Reported by: ALEJANDRA YOUNG on 05/04/221524 Last Action: Continued Guaifenesin (Mucinex) 1,200 Mg Tab.er.12h, 600 MG PO BID, (Reported) Entered as Reported by: ALEJANDRA YOUNG on 05/04/221524 Last Action: Reviewed Magnesium Oxide (Magnesium) 400 Mg Magnesium Tablet, 400 MG PO DAILY, (Reported) Entered as Reported by: ALEJANDRA YOUNG on 05/04/221524 Last Action: Reviewed Multivitamin (Multivitamin) 1 Each Tablet, 1 EACH PO DAILY, (Reported) Entered as Reported by: ALEJANDRA YOUNG on 05/04/221524 Last Action: Reviewed Mupirocin (Mupirocin) 2 % Oint...g., 1 APPLIC TOP TID, (Reported) Entered as Reported by: ALEJANDRA YOUNG on 05/04/221524 Last Action: Reviewed Omeprazole (Omeprazole) 40 Mg Capsule.dr, 40 MG PO DAILY, (Reported) Entered as Reported by: ALEJANDRA YOUNG on 05/04/221524 Last Action: Reviewed Oxycodone HCl/Acetaminophen (Oxycodone-Acetaminophen 5-325) 5 Mg-325 Mg Tablet, 1 EA PO BID, (Reported) Entered as Reported by: ALEJANDRA YOUNG on 05/04/221524 Last Action: Continued Potassium Chloride (K-Tab ER) 10 Meq Tablet.er, 10 MEQ PO DAILY, (Reported) Entered as Reported by: ALEJANDRA YOUNG on 05/04/221524 Last Action: Reviewed Discontinued Medications Nirmatrelvir/Ritonavir (Paxlovid 300-100 mg Pack (Eua)) 300 Mg (150 Mg X 2)-100 Mg Tab.ds.pk, 1 EACH PO BID Discontinued Reason: No Longer Taking Prescribed by: RAFAEL UMAÑA on 02/26/221443 Last Action: Discontinued Prednisone (Prednisone) 20 Mg Tab, 40 MG PO DAILY Discontinued Reason: No Longer Taking Prescribed by: RAFAEL UMAÑA on 02/26/221443 Last Action: Discontinued Past Abgchhh-Gjyncs-Glkhiz Hx Patient Social History Living Status: Lives at home independently Review of Systems Constitutional: No chills, No fever; weakness EENTM: no symptoms reported; No mouth pain, No nose congestion, No nose pain Respiratory: cough, dyspnea on exertion, short of breath Cardiovascular: no symptoms reported; No chest pain, No edema, No palpitations Gastrointestinal: no symptoms reported; No abdominal pain, No constipation, No diarrhea, No nausea, No vomiting Genitourinary: no symptoms reported; No dysuria, No frequency, No hematuria Musculoskeletal: no symptoms reported; No back pain, No joint pain, No muscle pain Skin: no symptoms reported Psychiatric/Neurological: No Symptoms Reported Physical Exam General Appearance: Moderate Distress, Obese HEENT: PERRL/EOMI, Moist Mucous Membranes Neck: Full Range of Motion, Non Tender, Supple Respiratory: Chest Non Tender, Accessory Muscle Use, Crackles, Other (Vapotherm) Cardiovascular: Regular Rate, Rhythm, No Edema, No Murmur Gastrointestinal: Normal Bowel Sounds, Non Tender, Soft Back: No CVA Tenderness, No Vertebral Tenderness Extremity: Normal Capillary Refill, Non Tender, No Calf Tenderness, No Pedal Edema Neurologic/Psychiatric: Alert, Oriented x3, stope miner II-XII Norm as Tested Skin: Normal Color, Warm/Dry Lymphatic: No Adenopathy Assessment/Plan Admission Diagnosis Admission Status: Inpatient Order (span 2 midnights) Reason for Inpatient Admission: high risk for decompensation, increased oxygen requirement Supervisory-Addendum Brief Verification & Attestation Participated in pt care: history, physical Personally performed: exam, history Care discussed with: Medical Student Procedures: n/a Verification and Attestation of Medical Student E/M Service A medical student performed and documented this service in my presence. I reviewed and verified all information documented by the medical student and made modifications to such information, when appropriate. I personally performed the physical exam and medical decision making. Jaime Michelle, May 05, 2022,14:57 Acute on Chronic respiratory failure with hypoxia AECOPD - Titrated to vapotherm from bipap, will continue to monitor and titrate oxygen as tolerated - Continue IV steroids and antibiotics Elevated BNP - Echo ordered today Depression - Continue home meds DVT PPX - Lovenox DIANA HUIZAR May 05, 2022 09:38 JAIME MICHELLE MD May 05, 2022 14:59
[2022-05-05] MEDS: RT--FLUTICASONE/SALMETEROL 232-14 (AIRDUO RespiCLICK) IH SCH ×2 (10:37→18:39)
--- NOTE | 2022-05-05 14:09 | Physical Therapy Progress Note ---
Therapy Progress Note Patient adamantly declined PT. PT attempted to educate patient on importance of participating with PT and performing OOB activity to improve pulmonary function, however, patient continued to decline therapy. RN notified. 1 ref EAGLE DUNCAN PT May 05, 2022 14:08
[2022-05-05] MEDS: CATHETER FLUSH 10 ML SYR IV SCH ×2 (14:23→21:28)
--- NOTE | 2022-05-05 14:41 | Physical Therapy Evaluation ---
PT Evaluation-General Medical Diagnosis Admission Date May 04, 2022 at 12:59 Medical Diagnosis: Shortness of breath/ COPD exacerbation Onset Date: May 04, 2022 Therapy Diagnosis Therapy Diagnosis: Gait deficit, strength deficit Precautions Precautions/Isolations: Fall Prevention, Standard Precautions Weight Bear Status Right Lower Extremity: Right Full Weight Bearing Left Lower Extremity: Left Full Weight Bearing Referral Physician: Dr. Bowers Reason for Referral: Evaluation/Treatment, Strengthening Medical History Reviewed History: Yes Social History Home: Assisted Living Current Living Status: Alone Entry Into Home: Level Entry Prior Prior Level of Function SCALE: Activities may be completed with or without assistive devices. 2-Ogyukswtwv-eohinii completes the activity by him/herself with no assistance from a helper. 5-Set-up or Clean-up Assistance-helper sets up or cleans up; patient completes activity. [place] assists only prior to or following the activity. 4-Supervision or Touching Assistance-helper provides verbal cues and/or touching/steadying and/or contact guard assistance as patient completes activity. Assistance may be provided throughout the activity or intermittently. 3-Partial/Moderate Assistance-helper does LESS THAN HALF the effort. [place] lifts, holds or supports trunk or limbs, but provides less than half the effort. 2-Substantial/Maximal Assistance-helper does MORE THAN HALF the effort. [place] lifts or holds trunk or limbs and provides more than half the effort. 6-Bzyyvkysj-rukgwc does ALL the effort. Patient does none of the effort to complete the activity. Or, the assistance of 2 or more helpers is required for the patient to complete the activity. If activity was not attempted, code reason: 7-Patient Refused. 9-Not Applicable-not attempted and the patient did not perform the activity before the current illness, exacerbation or injury. 10-Not Attempted due to Environmental Limitations-(lack of equipment, weather restraints, etc.). 88-Not Attempted due to Medical Conditions or Safety Concerns. Bed Mobility: 6 Transfers (B,C,W/C): 6 Gait: 6 Indoor Mobility (Ambulation): Independent Stairs: Not Applicalbe Prior Devices Use: Walker PT Evaluation-Current Subjective Patient lying supine in bed upon PT arrival, agreeable to treatment. Patient rates pain at 3/10 currently in her back. Objective Patient Orientation: Person, Place, Time, Situation Attachments: Oxygen, Dutta Catheter, IV Patient on Vapotherm 25 LPM, 60% O2 ROM/Strength ROM Lower Extremities WFLs bilaterally all planes. Strength Lower Extremities 3+/5 all planes bilaterally Sensory Vision: Functional Hearing: Functional Sensation Right Lower Extremit: Intact Sensation Left Lower Extremity: Intact Transfers Roll Left to Right (QC): 4 Sit to Lying (QC): 4 Lying to Sitting/Side of Bed(Q: 4 Sit to Stand (QC): 3 Chair/Fol-my-Qejhv Xfer(QC): 4 Gait Does the Patient Walk?: No and Walking Goal IS indicated Mode of Locomotion: Walk Anticipated Mode of Locomotion: Walk Walk 10 feet (QC): 88 Distance: 2 feet Gait Assistive Device: FWW Balance Sitting Static: Fair Sitting Dynamic: Fair Standing Static: Fair Standing Dynamic: Fair Assessment/Needs Patient tolerated treatment well. Demonstrates SBA for all bed mobility and transfers except sit to stand, required min A. Patient is able to ambulate 2 feet with FWW, with CGA to the chair. Once in the chair patient requests items to perform bed bath. Patient in the chair post treatment with all needs met, nurse in the room assisting with bed bath. Rehab Potential: Fair PT [place] Reporter Goals Nursing Home Goals PT Nursing Home Goals Time Frame: May 22, 2022 Roll Left & Right (QC): 6 Sit to Lying (QC): 6 Lying-Sitting on Side/Bed(QC): 6 Sit to Stand (QC): 6 Chair/Axj-ki-Psptt Xfer(QC): 6 Toilet Transfer (QC): 6 Does the Patient Walk: Yes Walk 10 feet (QC): 4 Walk 50ft with 2 Turns (QC): 4 Walk 150 ft (QC): 4 PT Plan Problem List Problem List: Activity Tolerance, Functional Strength, Safety, Balance, Gait, Transfer, Bed Mobility, ROM Treatment/Plan Treatment Plan: Continue Plan of Care Treatment Plan: Bed Mobility, Education, Functional Activity Trevor, Functional Strength, Group Therapy, Gait, Safety, Therapeutic Exercise, Transfers Treatment Duration: May 22, 2022 Frequency: 6 times per week Estimated Hrs Per Day: .25 hour per day Patient and/or Family Agrees t: Yes Safety Risks/Education Patient Education: Gait Training, Transfer Techniques Teaching Recipient: Patient Teaching Methods: Demonstration, Discussion Response to Teaching: Reinforcement Needed Time Time In: 1416 Time Out: 1440 DATE: May 05, 2022 Total Billed Treatment Time: 24 Total Billed Treatment Visit, MAURA HERNANDEZ JOHN A PT May 05, 2022 14:41
[2022-05-05] MEDS: cefTRIAXone 1 GM PRE-MIX 50 ML IV SCH (16:59)
[2022-05-06] MEDS: RT-ALBUTEROL/IPRATROPIUM 3 ML (DUONEB) VIAL INH SCH ×6 (02:08→22:15)
[2022-05-06 03:33] VITALS: BP 126/72
[2022-05-06 04:42] LABS: BASOPHILS % (AUTO) 1 % (0-10); EOSINOPHILS % (AUTO) 1 % (0-10); HEMATOCRIT 38 % (35-52); HEMOGLOBIN 12.2 g/dL (11.5-16.0); LYMPHOCYTES # (AUTO) 2.6 10^3/uL (1.0-4.0); LYMPHOCYTES % (AUTO) 30 % (12-44); MEAN CORPUSCULAR HEMOGLOBIN 33 pg (25-34); MEAN CORPUSCULAR HGB CONC 32 g/dL (32-36); MEAN CORPUSCULAR VOLUME 103 fL (80-99); MEAN PLATELET VOLUME 8.7 fL (9.0-12.2); MONOCYTES # (AUTO) 0.6 10^3/uL (0.0-1.0); MONOCYTES % (AUTO) 6 % (0-12); NEUTROPHILS # (AUTO) 5.3 10^3/uL (1.8-7.8); NEUTROPHILS % (AUTO) 62 % (42-75); PLATELET COUNT 214 10^3/uL (130-400); WHITE BLOOD COUNT 8.6 10^3/uL (4.3-11.0)
[2022-05-06 04:56] LABS: ALBUMIN 3.3 GM/DL (3.2-4.5)
[2022-05-06 04:57] LABS: POTASSIUM 3.4 MMOL/L (3.6-5.0)
[2022-05-06 04:58] LABS: CALCIUM 9.4 MG/DL (8.5-10.1)
[2022-05-06 04:59] LABS: TOTAL PROTEIN 5.9 GM/DL (6.4-8.2)
[2022-05-06 05:01] LABS: BILIRUBIN,TOTAL 0.3 MG/DL (0.1-1.0)
[2022-05-06 05:02] LABS: CREATININE SERUM 0.67 MG/DL (0.60-1.30)
[2022-05-06] MEDS: CATHETER FLUSH 10 ML SYR IV SCH ×3 (06:02→20:50)
[2022-05-06] MEDS: RT--FLUTICASONE/SALMETEROL 232-14 (AIRDUO RespiCLICK) IH SCH ×2 (07:20→22:15)
[2022-05-06 08:00] VITALS: BP 142/79
[2022-05-06] MEDS: oxyCODONE/APAP 5/325MG (PERCOCET 5) TABLET PO SCH ×2 (08:22→20:50)
[2022-05-06] MEDS: GABAPENTIN 100 MG (NEURONTIN) CAP PO SCH ×2 (08:22→20:50)
[2022-05-06] MEDS: AZITHROMYCIN INJECTION 250 MG in NS (IVPB) 250 ML IV SCH (08:22)
[2022-05-06] MEDS: ATENOLOL 25 MG (TENORMIN) TAB PO SCH (08:22)
--- NOTE | 2022-05-06 11:33 | Progress Note ---
[facility] 05[facility] 1133: Subjective Date Seen by a Provider: May 06, 2022 Time Seen by a Provider: 11:28 Subjective/Events-last exam Today patient is feeling better and in much better spirits. Was on Bipap overnight and is back on Vapotherm 40%, not using IS. She has been up to chair with PT but prefers bed. Reports no BM since prior to hospital admit, usually uses Diet Dr. Hutchinson to help BMs. Echo yesterday with EF 60-65% and no other pertinent findings. She does not some soreness of her buttocks. Review of Systems General: No Chills, No Night Sweats HEENT: No Head Aches, No Sore Throat Pulmonary: No Dyspnea, No Cough Cardiovascular: No: Chest Pain, Palpitations Gastrointestinal: No: Nausea, Abdominal Pain Focused Exam Lactate Level 05/04/22 10:20: Lactic Acid Level 0.77 Objective Exam Last Set of Vital Signs Vital Signs Date Time Temp Pulse Resp B/P (MAP) Pulse Ox O2 Delivery O2 Flow Rate FiO2 05/06/22 11:01 92 Vapotherm 25.00 60 05/06/22 08:00 36.1 90 22 142/79 (100) Capillary Refill : Less Than 3 Seconds I&O Intake and Output 05/06/22 00:00 Intake Total 1422 ml Output Total 625 ml Balance 797 ml Intake Oral 922 ml IV Total 500 ml Output Urine Total 625 ml General: Alert, Oriented X3, No Acute Distress HEENT: Atraumatic, PERRLA, EOMI, Mucous Memb Moist/[place] Lungs: Normal Air Movement, Other (diffuse wheezing b/l) Heart: Regular Rate, Normal S1, Normal S2, No Murmurs Abdomen: Normal Bowel Sounds, Soft, No Tenderness Extremities: No Edema, Normal Pulses Skin: No Rashes, No Significant Lesion Neuro: Normal Speech Psych/Mental Status: Mental Status NL, Mood NL Results Lab Laboratory Tests 05/06/22 04:00: White Blood Count 8.6, Red Blood Count 3.67L, Hemoglobin 12.2, Hematocrit 38, Mean Corpuscular Volume 103H, Mean Corpuscular Hemoglobin 33, Mean Corpuscular Hemoglobin Concent 32, Red Cell Distribution Width 13.7, Platelet Count 214, Mean Platelet Volume 8.7L, Immature Granulocyte % (Auto) 0, Neutrophils (%) (Auto) 62, Lymphocytes (%) (Auto) 30, Monocytes (%) (Auto) 6, Eosinophils (%) (Auto) 1, Basophils (%) (Auto) 1, Neutrophils # (Auto) 5.3, Lymphocytes # (Auto) 2.6, Monocytes # (Auto) 0.6, Eosinophils # (Auto) 0.0, Basophils # (Auto) 0.0, Immature Granulocyte # (Auto) 0.0, Sodium Level 139, Potassium Level 3.4L, Chloride Level 96L, Carbon Dioxide Level 32, Anion Gap 11, Blood Urea Nitrogen 18, Creatinine 0.67, Estimat Glomerular Filtration Rate 98, BUN/Creatinine Ratio 27, Glucose Level 91, Calcium Level 9.4, Corrected Calcium 10.0, Total Bilirubin 0.3, Aspartate Amino Transf (AST/SGOT) 20, Alanine Aminotransferase (ALT/SGPT) 21, Alkaline Phosphatase 89, Total Protein 5.9L, Albumin 3.3 Microbiology 05/04/22 Blood Culture - Preliminary, Resulted Staph, Coag Neg (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 Clinical Quality Measures Admission Status Admission Dx Acute on chronic respiratory failure JAIME BOWERS MD 05/06/22 1640: Supervisory-Addendum Brief Verification & Attestation Participated in pt care: history, physical Personally performed: exam, history Care discussed with: Medical Student Procedures: n/a Verification and Attestation of Medical Student E/M Service A medical student performed and documented this service in my presence. I reviewed and verified all information documented by the medical student and made modifications to such information, when appropriate. I personally performed the physical exam and medical decision making. Jaime Bowers, May 06, 2022,16:40 DIANA HUIZAR May 06, 2022 11:33 JAIME BOWERS MD May 06, 2022 16:40
[2022-05-06 11:40] VITALS: BP 131/72
--- NOTE | 2022-05-06 14:12 | Physical Therapy Daily Note ---
PT Daily Note-Current Subjective Pt. reluctantly agrees to Rx, but finally agrees to sitting EOB LE ex and sit to stands. Pain Location: No Pain Reported Section J - Health Conditions 1. Rarely or not at all 2. Occasionally 3. Frequently 4. Almost constantly 8. Unable to answer Pain Effect on Sleep: 1 Pain Interference with Therapy: 1 Pain Interference w/Day-to-Day: 1 Mental Status Patient Orientation: Normal For Age Attachments: SCD's, Oxygen (bipap/vapo), Dutta Catheter, Other-See Comments (BP, O2 sat) Transfers SCALE: Activities may be completed with or without assistive devices. 7-Lqigkmapgd-tooqcnk completes the activity by him/herself with no assistance from a helper. 5-Set-up or Clean-up Assistance-helper sets up or cleans up; patient completes activity. [place] assists only prior to or following the activity. 4-Supervision or Touching Assistance-helper provides verbal cues and/or touching/steadying and/or contact guard assistance as patient completes activity. Assistance may be provided throughout the activity or intermittently. 3-Partial/Moderate Assistance-helper does LESS THAN HALF the effort. [place] lifts, holds or supports trunk or limbs, but provides less than half the effort. 2-Substantial/Maximal Assistance-helper does MORE THAN HALF the effort. [place] lifts or holds trunk or limbs and provides more than half the effort. 2-Vbditqhmx-pnfwtm does ALL the effort. Patient does none of the effort to complete the activity. Or, the assistance of 2 or more helpers is required for the patient to complete the activity. If activity was not attempted, code reason: 7-Patient Refused. 9-Not Applicable-not attempted and the patient did not perform the activity before the current illness, exacerbation or injury. 10-Not Attempted due to Environmental Limitations-(lack of equipment, weather restraints, etc.). 88-Not Attempted due to Medical Conditions or Safety Concerns. Sit to Lying (QC): 4 Lying to Sitting/Side of Bed(Q: 4 Sit to Stand (QC): 4 pt. required assist for all tubing in out bed and elbow to elbow support sit to stand and side step left and right while tubes were guarded and disconnecting, needing reconnected repeatedly, no LOB, some fatigue Weight Bearing Right Lower Extremity: Right Full Weight Bearing Left Lower Extremity: Left Full Weight Bearing Gait Training side step left and right min to CGA 6 ft x 2 Exercises Seated Therapy Exercises: Ankle pumps, Sit to stand, Long arc quads, Hip flexion Seated Reps: 12 Treatments bed mob, TRFs, ex, in b ed with all tubes and attachments insitu, nursing present to double check, maxwell at hand Assessment Current Status: Fair Progress PT Retirement Goals Retirement Goals 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 Time Frame: May 22, 2022 Roll Left & Right (QC): 6 Sit to Lying (QC): 6 Lying-Sitting on Side/Bed(QC): 6 Sit to Stand (QC): 6 Chair/Hqk-hl-Ownkl Xfer(QC): 6 Toilet Transfer (QC): 6 Does the Patient Walk: Yes Walk 10 feet (QC): 4 Walk 50ft with 2 Turns (QC): 4 Walk 150 ft (QC): 4 PT Plan Treatment/Plan Treatment Plan: Continue Plan of Care Treatment Plan: Bed Mobility, Education, Functional Activity Trevor, Functional Strength, Group Therapy, Gait, Safety, Therapeutic Exercise, Transfers Treatment Duration: May 22, 2022 Frequency: 6 times per week Estimated Hrs Per Day: .25 hour per day Patient and/or Family Agrees t: Yes Safety Risks/Education Patient Education: Transfer Techniques, Correct Positioning, Safety Issues Time Time In: 1325 Time Out: 1345 DATE: May 06, 2022 Total Billed Treatment Time: 20 Total Billed Treatment 1,FA20m RAMSES TSAI MANUFACTURING SCHEDULER May 06, 2022 14:12
[2022-05-06 16:00] VITALS: BP 119/74
[2022-05-06] MEDS: cefTRIAXone 1 GM PRE-MIX 50 ML IV SCH (18:27)
[2022-05-06 20:00] VITALS: BP 141/81
[2022-05-07] VITALS: BP 139/76
[2022-05-07 04:00] VITALS: BP 149/86
[2022-05-07 05:20] LABS: BASOPHILS % (AUTO) 0 % (0-10); EOSINOPHILS # (AUTO) 0.1 10^3/uL (0.0-0.3); EOSINOPHILS % (AUTO) 1 % (0-10); HEMATOCRIT 38 % (35-52); HEMOGLOBIN 12.3 g/dL (11.5-16.0); LYMPHOCYTES # (AUTO) 2.4 10^3/uL (1.0-4.0); LYMPHOCYTES % (AUTO) 31 % (12-44); MEAN CORPUSCULAR HEMOGLOBIN 33 pg (25-34); MEAN CORPUSCULAR HGB CONC 33 g/dL (32-36); MEAN CORPUSCULAR VOLUME 102 fL (80-99); MEAN PLATELET VOLUME 8.8 fL (9.0-12.2); MONOCYTES # (AUTO) 0.5 10^3/uL (0.0-1.0); MONOCYTES % (AUTO) 7 % (0-12); NEUTROPHILS # (AUTO) 4.7 10^3/uL (1.8-7.8); NEUTROPHILS % (AUTO) 61 % (42-75); PLATELET COUNT 216 10^3/uL (130-400); WHITE BLOOD COUNT 7.7 10^3/uL (4.3-11.0)
[2022-05-07] MEDS: CATHETER FLUSH 10 ML SYR IV SCH ×3 (05:58→22:15)
[2022-05-07 06:08] LABS: ALBUMIN 3.1 GM/DL (3.2-4.5); BILIRUBIN,TOTAL 0.4 MG/DL (0.1-1.0); CALCIUM 9.6 MG/DL (8.5-10.1); CREATININE SERUM 0.63 MG/DL (0.60-1.30); POTASSIUM 3.8 MMOL/L (3.6-5.0); TOTAL PROTEIN 6.2 GM/DL (6.4-8.2)
--- NOTE | 2022-05-07 06:16 | Progress Note - Hospitalist ---
Subjective HPI/CC On Admission Date Seen by Provider: May 07, 2022 Time Seen by Provider: 11:00 Subjective/Events-last exam No major changes Vapotherm maintained Adding steroids Appears very end stage Review of Systems Pulmonary: Dyspnea, Cough Focused Exam Lactate Level Objective Exam Vital Signs Vital Signs Date Time Temp Pulse Resp B/P (MAP) Pulse Ox O2 Delivery O2 Flow Rate FiO2 05/07/22 19:00 86 05/07/22 18:27 96 Vapotherm 25.00 50 05/07/22 12:00 36.5 16 154/92 (112) Capillary Refill : Less Than 3 Seconds General Appearance: No Apparent Distress, WD/WN, Chronically ill, Obese Respiratory: No Respiratory Distress, Accessory Muscle Use, Crackles, Decreased Breath Sounds, Rales Cardiovascular: Regular Rate, Rhythm Neurologic/Psychiatric: Alert, Oriented x3, No Motor/Sensory Deficits, Normal Mood/Affect Results/Procedures Lab Laboratory Tests 05/07/22 03:50 Patient resulted labs reviewed. Assessment/Plan Assessment and Plan Assess & Plan/Chief Complaint Acute on Chronic respiratory failure with hypoxia AECOPD - Titrated to vapotherm from bipap, will continue to monitor and titrate oxygen as tolerated - Continue IV steroids and antibiotics - Encouraged use of IS Elevated BNP - Echo nl with EF 60-65% Depression - Continue home meds DVT PPX - Loveamandax NITHIN AYALA DO May 07, 2022 06:16
[2022-05-07] MEDS: RT-ALBUTEROL/IPRATROPIUM 3 ML (DUONEB) VIAL INH SCH ×5 (06:46→22:07)
[2022-05-07] MEDS: RT--FLUTICASONE/SALMETEROL 232-14 (AIRDUO RespiCLICK) IH SCH ×2 (06:47→18:30)
[2022-05-07 07:56] VITALS: BP 131/78
[2022-05-07] MEDS: GABAPENTIN 100 MG (NEURONTIN) CAP PO SCH ×2 (08:39→21:19)
[2022-05-07] MEDS: ATENOLOL 25 MG (TENORMIN) TAB PO SCH (08:39)
[2022-05-07] MEDS: oxyCODONE/APAP 5/325MG (PERCOCET 5) TABLET PO SCH ×2 (08:40→21:15)
[2022-05-07] MEDS: AZITHROMYCIN INJECTION 250 MG in NS (IVPB) 250 ML IV SCH (08:47)
--- NOTE | 2022-05-07 09:24 | Physical Therapy Daily Note ---
PT Daily Note-Current Subjective Patient agrees to PT. Remains on Vapotherm Pain Section J - Health Conditions 1. Rarely or not at all 2. Occasionally 3. Frequently 4. Almost constantly 8. Unable to answer Pain Effect on Sleep: 1 Pain Interference with Therapy: 1 Pain Interference w/Day-to-Day: 1 Mental Status Patient Orientation: Person, Time, Situation Attachments: Oxygen, Dutta Catheter Transfers SCALE: Activities may be completed with or without assistive devices. 9-Urbudmtzqn-umeabdf completes the activity by him/herself with no assistance from a helper. 5-Set-up or Clean-up Assistance-helper sets up or cleans up; patient completes activity. [place] assists only prior to or following the activity. 4-Supervision or Touching Assistance-helper provides verbal cues and/or touching/steadying and/or contact guard assistance as patient completes activity. Assistance may be provided throughout the activity or intermittently. 3-Partial/Moderate Assistance-helper does LESS THAN HALF the effort. [place] lifts, holds or supports trunk or limbs, but provides less than half the effort. 2-Substantial/Maximal Assistance-helper does MORE THAN HALF the effort. [place] lifts or holds trunk or limbs and provides more than half the effort. 3-Rhehpgzcv-ybkxrj does ALL the effort. Patient does none of the effort to complete the activity. Or, the assistance of 2 or more helpers is required for the patient to complete the activity. If activity was not attempted, code reason: 7-Patient Refused. 9-Not Applicable-not attempted and the patient did not perform the activity before the current illness, exacerbation or injury. 10-Not Attempted due to Environmental Limitations-(lack of equipment, weather restraints, etc.). 88-Not Attempted due to Medical Conditions or Safety Concerns. 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 Patient is up in recliner with needs met. PT to increase activity as tolerated by patient. SAO2 remains >90% with minimal activity PT Jail Goals Housing Director Goals PT Housing Director Goals Time Frame: May 22, 2022 Roll Left & Right (QC): 6 Sit to Lying (QC): 6 Lying-Sitting on Side/Bed(QC): 6 Sit to Stand (QC): 6 Chair/Spv-ud-Urayc Xfer(QC): 6 Toilet Transfer (QC): 6 Does the Patient Walk: Yes Walk 10 feet (QC): 4 Walk 50ft with 2 Turns (QC): 4 Walk 150 ft (QC): 4 PT Plan Treatment/Plan Treatment Plan: Continue Plan of Care Treatment Plan: Bed Mobility, Education, Functional Activity Trevor, Functional Strength, Group Therapy, Gait, Safety, Therapeutic Exercise, Transfers Treatment Duration: May 22, 2022 Frequency: 6 times per week Estimated Hrs Per Day: .25 hour per day Patient and/or Family Agrees t: Yes Time Time In: 815 Time Out: 826 DATE: May 07, 2022 Total Billed Treatment Time: 11 Total Billed Treatment 1 visit FA 11 min EAGLE DUNCAN PT May 07, 2022 09:24
[2022-05-07] MEDS ORDERED: diphenhydrAMINE 25 MG TAB (BENADRYL) PO PRN ×3 (11:15→21:45)
[2022-05-07] MEDS ORDERED: guaiFENesin/CODEINE (ROBITUSSIN AC) 10ML UDC PO PRN (11:15)
[2022-05-07] MEDS ORDERED: guaiFENesin/CODEINE (ROBITUSSIN AC) 10ML UDC PO NR (11:30)
[2022-05-07] MEDS: methylPREDNISolone 40 MG/ML (Solu-MEDROL) VIAL IV SCH ×3 (11:54→23:41)
[2022-05-07 12:00] VITALS: BP 154/92
[2022-05-07] MEDS: MUPIROCIN 2% OINT 22 GM (BACTROBAN) TUBE TOP SCH ×2 (12:01→21:15)
[2022-05-07] MEDS: cefTRIAXone 1 GM PRE-MIX 50 ML IV SCH (17:38)
[2022-05-07 20:28] VITALS: BP 159/83
[2022-05-07] MEDS: MONTELUKAST 10 MG (SINGULAIR) TAB PO SCH (21:14)
[2022-05-07] MEDS: guaiFENesin (MUCINEX) 600 MG TAB PO SCH (21:14)
[2022-05-07] MEDS ORDERED: ALPRAZolam 0.25 MG (XANAX) TAB PO PRN (21:45)
[2022-05-07] MEDS ORDERED: MELATONIN 3 MG TABLET PO PRN (21:45)
[2022-05-07] MEDS ORDERED: HYDROcodone/APAP 5 MG/325 MG (LORTAB) TAB PO PRN (21:45)
[2022-05-07] MEDS ORDERED: BISACODYL 10 MG SUPP (DULCOLAX) PR PRN (21:45)
[2022-05-07] MEDS ORDERED: CALCIUM CARBONATE 500 MG (TUMS) TAB.CHEW PO PRN (21:45)
[2022-05-07] MEDS ORDERED: DOCUSATE SODIUM 100 MG (COLACE) CAP PO PRN (21:45)
[2022-05-07] MEDS ORDERED: ONDANSETRON 4 MG (ZOFRAN) ORAL DISSOLVE TAB PO PRN (21:45)
[2022-05-07] MEDS ORDERED: MENTHOL/ZINC OXIDE (CALMOSEPTINE) 113 GM TUBE TP PRN (21:45)
[2022-05-07] MEDS ORDERED: ONDANSETRON 4 MG/2 ML (SDV) Z0FRAN IVP PRN (21:45)
[2022-05-07] MEDS ORDERED: ACETAMINOPHEN 325 MG TABLET PO PRN (21:45)
[2022-05-08] VITALS (8 sets, daily range): BP systolic 123–182; BP diastolic 68–95
[2022-05-08] MEDS: RT-ALBUTEROL/IPRATROPIUM 3 ML (DUONEB) VIAL INH SCH ×6 (01:55→20:49)
[2022-05-08 05:05] LABS: BASOPHILS % (AUTO) 0 % (0-10); EOSINOPHILS % (AUTO) 0 % (0-10); HEMATOCRIT 38 % (35-52); HEMOGLOBIN 12.9 g/dL (11.5-16.0); LYMPHOCYTES # (AUTO) 0.7 10^3/uL (1.0-4.0); LYMPHOCYTES % (AUTO) 9 % (12-44); MEAN CORPUSCULAR HEMOGLOBIN 33 pg (25-34); MEAN CORPUSCULAR HGB CONC 34 g/dL (32-36); MEAN CORPUSCULAR VOLUME 98 fL (80-99); MEAN PLATELET VOLUME 8.8 fL (9.0-12.2); MONOCYTES # (AUTO) 0.1 10^3/uL (0.0-1.0); MONOCYTES % (AUTO) 1 % (0-12); NEUTROPHILS % (AUTO) 89 % (42-75); PLATELET COUNT 234 10^3/uL (130-400); WHITE BLOOD COUNT 7.8 10^3/uL (4.3-11.0)
[2022-05-08 05:32] LABS: ALBUMIN 3.2 GM/DL (3.2-4.5); BILIRUBIN,TOTAL 0.4 MG/DL (0.1-1.0); CALCIUM 9.5 MG/DL (8.5-10.1); CREATININE SERUM 0.62 MG/DL (0.60-1.30); POTASSIUM 3.9 MMOL/L (3.6-5.0); TOTAL PROTEIN 6.3 GM/DL (6.4-8.2)
[2022-05-08 05:43] LABS: LYMPHOCYTES % (MANUAL) 9 %; MONOCYTES % (MANUAL) 1 %; NEUTROPHILS % (MANUAL) 90 %; RBC MORPH NORMAL
--- NOTE | 2022-05-08 05:44 | Progress Note - Hospitalist ---
Subjective HPI/CC On Admission Date Seen by Provider: May 08, 2022 Time Seen by Provider: 11:00 Subjective/Events-last exam Improved since added steroids Vapotherm still maintained No falls BM+ Moving to 4th floor Review of Systems Pulmonary: Dyspnea, Cough Objective Exam Vital Signs Vital Signs Date Time Temp Pulse Resp B/P (MAP) Pulse Ox O2 Delivery O2 Flow Rate FiO2 05/08/22 21:00 Vapotherm 20.00 50 05/08/22 20:50 94 05/08/22 19:18 36.8 81 19 169/71 (103) Capillary Refill : Less Than 3 Seconds General Appearance: No Apparent Distress, WD/WN, Chronically ill, Obese Respiratory: No Accessory Muscle Use, No Respiratory Distress, Crackles, Decr eased Breath Sounds, Wheezing Cardiovascular: Regular Rate, Rhythm Neurologic/Psychiatric: Alert, Oriented x3, No Motor/Sensory Deficits, Normal Mood/Affect Results/Procedures Lab Laboratory Tests 05/08/22 04:30 Patient resulted labs reviewed. Assessment/Plan Assessment and Plan Assess & Plan/Chief Complaint Acute on Chronic respiratory failure with hypoxia AECOPD - Titrated to vapotherm from bipap, will continue to monitor and titrate oxygen as tolerated - Continue IV steroids and antibiotics - Encouraged use of IS Elevated BNP - Echo nl with EF 60-65% Depression - Continue home meds DVT PPX - NITHIN Serrano DO May 08, 2022 05:44
[2022-05-08] MEDS: CATHETER FLUSH 10 ML SYR IV SCH ×3 (06:04→22:38)
[2022-05-08] MEDS: methylPREDNISolone 40 MG/ML (Solu-MEDROL) VIAL IV SCH ×4 (06:04→23:32)
[2022-05-08] MEDS: MULTIVIT W/MINERALS TAB (THERAGRAN M) PO SCH (06:22)
[2022-05-08] MEDS: GABAPENTIN 100 MG (NEURONTIN) CAP PO SCH ×2 (08:32→20:30)
[2022-05-08] MEDS: ASCORBIC ACID (VIT C) 500 MG TABLET PO SCH (08:32)
[2022-05-08] MEDS: KCL 10 MEQ TAB (MICRO K) PO SCH (08:32)
[2022-05-08] MEDS: ATENOLOL 25 MG (TENORMIN) TAB PO SCH (08:32)
[2022-05-08] MEDS: PANTOPRAZOLE 40 MG (PROTONIX) TAB PO SCH (08:33)
[2022-05-08] MEDS: guaiFENesin (MUCINEX) 600 MG TAB PO SCH ×2 (08:33→20:30)
[2022-05-08] MEDS: oxyCODONE/APAP 5/325MG (PERCOCET 5) TABLET PO SCH ×2 (08:33→20:30)
[2022-05-08] MEDS: CALCIUM CARB + VIT D 600 MG (CALCARB + D) TAB PO SCH (08:33)
[2022-05-08] MEDS: MAGNESIUM OXIDE (MAG-OX)400 MG TAB PO SCH (08:33)
[2022-05-08] MEDS: SENNA W/DOCUSATE (SENOKOT S) TABLET PO SCH ×2 (08:33→20:30)
[2022-05-08] MEDS: FUROSEMIDE 40 MG (LASIX) TAB PO SCH (08:34)
[2022-05-08] MEDS: ENOXAPARIN 40 MG/0.4 ML (LOVENOX) SYR SC SCH (08:34)
[2022-05-08] MEDS: AZITHROMYCIN INJECTION 250 MG in NS (IVPB) 250 ML IV SCH (08:35)
[2022-05-08] MEDS: MUPIROCIN 2% OINT 22 GM (BACTROBAN) TUBE TOP SCH ×3 (08:35→21:03)
[2022-05-08] MEDS: polyethylene glycoL POWDER 17 GM (MIRALAX) PACK PO SCH ×2 (08:35→20:30)
[2022-05-08] MEDS: CLOTRIMAZOLE 1% CREAM (LOTRIMIN) 30 GM TP SCH (08:35)
[2022-05-08] MEDS ORDERED: NON-FORMULARY MEDICATION 1 EA EA (Omeprazole 40 MG) PO SCH (09:00)
--- NOTE | 2022-05-08 09:01 | Physical Therapy Daily Note ---
PT Daily Note-Current Subjective Patient agrees to PT. Pain Section J - Health Conditions 1. Rarely or not at all 2. Occasionally 3. Frequently 4. Almost constantly 8. Unable to answer Pain Effect on Sleep: 1 Pain Interference with Therapy: 1 Pain Interference w/Day-to-Day: 1 Mental Status Patient Orientation: Person, Time Attachments: Oxygen (vapotherm), Dutta Catheter, IV Transfers SCALE: Activities may be completed with or without assistive devices. 1-Mugfhmpnsn-xtpjfdz completes the activity by him/herself with no assistance from a helper. 5-Set-up or Clean-up Assistance-helper sets up or cleans up; patient completes activity. [place] assists only prior to or following the activity. 4-Supervision or Touching Assistance-helper provides verbal cues and/or touching/steadying and/or contact guard assistance as patient completes activity. Assistance may be provided throughout the activity or intermittently. 3-Partial/Moderate Assistance-helper does LESS THAN HALF the effort. [place] lifts, holds or supports trunk or limbs, but provides less than half the effort. 2-Substantial/Maximal Assistance-helper does MORE THAN HALF the effort. [place] lifts or holds trunk or limbs and provides more than half the effort. 8-Trextjvav-pjllpu does ALL the effort. Patient does none of the effort to complete the activity. Or, the assistance of 2 or more helpers is required for the patient to complete the activity. If activity was not attempted, code reason: 7-Patient Refused. 9-Not Applicable-not attempted and the patient did not perform the activity before the current illness, exacerbation or injury. 10-Not Attempted due to Environmental Limitations-(lack of equipment, weather restraints, etc.). 88-Not Attempted due to Medical Conditions or Safety Concerns. Lying to Sitting/Side of Bed(Q: 4 Sit to Stand (QC): 4 Chair/Kbg-of-Pbzjk Xfer(QC): 4 Weight Bearing Right Lower Extremity: Right Full Weight Bearing Left Lower Extremity: Left Full Weight Bearing Exercises Seated Therapy Exercises: Ankle pumps, Long arc quads, Hip flexion Seated Reps: 15 Assessment Patient is SBA with all mobility with SAO2 remaining >90% with activity. Continued to be limited by Vapotherm tubing restrictions. PT Airway Traffic Controller Goals Detention Goals PT Detention Goals Time Frame: May 22, 2022 Roll Left & Right (QC): 6 Sit to Lying (QC): 6 Lying-Sitting on Side/Bed(QC): 6 Sit to Stand (QC): 6 Chair/Cyk-ke-Bxmbt Xfer(QC): 6 Toilet Transfer (QC): 6 Does the Patient Walk: Yes Walk 10 feet (QC): 4 Walk 50ft with 2 Turns (QC): 4 Walk 150 ft (QC): 4 PT Plan Treatment/Plan Treatment Plan: Continue Plan of Care Treatment Plan: Bed Mobility, Education, Functional Activity Trevor, Functional Strength, Group Therapy, Gait, Safety, Therapeutic Exercise, Transfers Treatment Duration: May 22, 2022 Frequency: 6 times per week Estimated Hrs Per Day: .25 hour per day Patient and/or Family Agrees t: Yes Time Time In: 845 Time Out: 856 DATE: May 08, 2022 Total Billed Treatment Time: 11 Total Billed Treatment 1 visit FA 11 min EAGLE DUNCAN PT May 08, 2022 09:01
[2022-05-08] MEDS: RT--FLUTICASONE/SALMETEROL 232-14 (AIRDUO RespiCLICK) IH SCH ×2 (11:00→20:49)
--- NOTE | 2022-05-08 15:06 | Occupational Therapy Eval ---
OT Evaluation-General/PLF Medical Diagnosis Admission Date May 04, 2022 at 12:59 Medical Diagnosis: Shortness of breath/ COPD exacerbation Onset Date: May 04, 2022 Therapy Diagnosis Therapy Diagnosis: weakness, SOA Precautions Precautions/Isolations: Standard Precautions Weight Bear Status Weight Bearing Restriction: Full Weight Bearing Referral Physician: Dr. Bowers Referral Reason: Evaluation/Treatment Medical History Pertinent Medical History: COPD Current History Patient is SBA with all mobility with SAO2 remaining >90% with activity. Continued to be limited by Vapotherm tubing restrictions. Reviewed History: Yes Social History Home: Assisted Living ([facility]) Current Living Status: Alone Entry Into Home: Level Entry ADL-Prior Level of Function SCALE: Activities may be completed with or without assistive devices. 6-Dknjsgokmd-zxvjtsx completes the activity by him/herself with no assistance from a helper. 5-Set-up or Clean-up Assistance-helper sets up or cleans up; patient completes activity. [place] assists only prior to or following the activity. 4-Supervision or Touching Assistance-helper provides verbal cues and/or touching/steadying and/or contact guard assistance as patient completes acti vity. Assistance may be provided throughout the activity or intermittently. 3-Partial/Moderate Assistance-helper does LESS THAN HALF the effort. [place] lifts, holds or supports trunk or limbs, but provides less than half the effort. 2-Substantial/Maximal Assistance-helper does MORE THAN HALF the effort. [place] lifts or holds trunk or limbs and provides more than half the effort. 2-Svoojqmxk-kavcac does ALL the effort. Patient does none of the effort to complete the activity. Or, the assistance of 2 or more helpers is required for the patient to complete the activity. If activity was not attempted, code reason: 7-Patient Refused. 9-Not Applicable-not attempted and the patient did not perform the activity before the current illness, exacerbation or injury. 10-Not Attempted due to Environmental Limitations-(lack of equipment, weather restraints, etc.). 88-Not Attempted due to Medical Conditions or Safety Concerns. Self Care: Independent Functional Cognition: Independent Drive Self: No (sister drives) OT Current Status Subjective Sitting zay cross legged in bed, agrees to OT Mental Status/Objective Patient Orientation: Situation Reports she can not get up because she uses a bed white, OT offers assist off bed white if completed w/ use, patietn then says she isnt on it right now but that is how she goes. Attachments: Dutta Catheter, IV, Oxygen Current Upper Extremity ROM BUE ROM WFLs Upper Extremity Strength +3/5 BUEs fatigues quickly ADL-Treatment Eating (QC): 6 Oral Hygiene (QC): 5 Shower/Bathe Self (QC): 7 Upper Body Dressing (QC): 4 Lower Body Dressing (QC): 4 On/Off Footwear (QC): 5 Toileting Hygiene (QC): 4 Education OT Patient Education: Energy conservation, Modified ADL techniques, Progress toward Goal/Update tx plan, Purpose of tx/functional activities, Reviewed precautions, Rehab process, Safety issues, Transfer techniques, Use of adapted equipment Teaching Recipient: Patient Teaching Methods: Demonstration, Discussion Response to Teaching: Reinforcement Needed OT Penitentiary Goals Sulfonation Equipment Operator Goals Oral Hygiene (QC): 6 Toileting Hygiene (QC): 6 Shower/Bathe Self (QC): 6 Upper Body Dressing (QC): 6 Lower Body Dressing (QC): 6 On/Off Footwear (QC): 6 1=Demonstrate adherence to instructed precautions during ADL tasks. 2=Patient will verbalize/demonstrate understanding of assistive devices/modifications for ADL. 3=Patient will improve strength/tolerance for activity to enable patient to p erform ADL's. OT Education/Plan Problem List/Assessment Assessment: Decreased Activ Tolerance, Decreased UE Strength, Impaired Funct Balance, Impaired Self-Care Skills Discharge Recommendations Plan/Recommendations: Continue POC Therapy Discharge Recommendati: Post Acute OT Treatment Plan/Plan of Care Treatment,Training & Education: Yes Patient would benefit from OT for education, treatment and training to promote independence in ADL's, mobility, safety and/or upper extremity function for ADL's. Plan of Care: ADL Retraining, Concurrent Therapy, Functional Mobility, Group Exercise/Act as Ind, UE Funct Exercise/Act Treatment Duration: May 16, 2022 Frequency: 3 times per week (3-5 times per week) Estimated Hrs Per Day: .25 hour per day Agreement: Yes Rehab Potential: Fair Time Start Time: 14:44 Stop Time: 14:57 DATE: May 08, 2022 Total Time Billed (hr/min): 13 Billed Treatment Time EVL 13 min ABDULAZIZ LOVE OT May 08, 2022 15:06
[2022-05-08] MEDS: cefTRIAXone 1 GM PRE-MIX 50 ML IV SCH (16:28)
[2022-05-08] MEDS: MONTELUKAST 10 MG (SINGULAIR) TAB PO SCH (20:30)
[2022-05-09] MEDS: RT-ALBUTEROL/IPRATROPIUM 3 ML (DUONEB) VIAL INH SCH ×6 (02:25→22:05)
[2022-05-09 03:13] VITALS: BP 112/66
[2022-05-09] MEDS: MULTIVIT W/MINERALS TAB (THERAGRAN M) PO SCH (05:26)
[2022-05-09] MEDS: methylPREDNISolone 40 MG/ML (Solu-MEDROL) VIAL IV SCH ×4 (05:26→23:23)
[2022-05-09] MEDS: CATHETER FLUSH 10 ML SYR IV SCH ×3 (05:26→23:24)
[2022-05-09] MEDS: RT--FLUTICASONE/SALMETEROL 232-14 (AIRDUO RespiCLICK) IH SCH ×2 (06:15→18:42)
[2022-05-09 06:24] LABS: BASOPHILS % (AUTO) 0 % (0-10); EOSINOPHILS % (AUTO) 0 % (0-10); HEMATOCRIT 40 % (35-52); HEMOGLOBIN 13.2 g/dL (11.5-16.0); LYMPHOCYTES % (AUTO) 7 % (12-44); MEAN CORPUSCULAR HEMOGLOBIN 33 pg (25-34); MEAN CORPUSCULAR HGB CONC 33 g/dL (32-36); MEAN CORPUSCULAR VOLUME 98 fL (80-99); MEAN PLATELET VOLUME 8.9 fL (9.0-12.2); MONOCYTES # (AUTO) 0.4 10^3/uL (0.0-1.0); MONOCYTES % (AUTO) 3 % (0-12); NEUTROPHILS # (AUTO) 12.8 10^3/uL (1.8-7.8); NEUTROPHILS % (AUTO) 89 % (42-75); PLATELET COUNT 281 10^3/uL (130-400); WHITE BLOOD COUNT 14.3 10^3/uL (4.3-11.0)
[2022-05-09 06:40] LABS: ALBUMIN 3.4 GM/DL (3.2-4.5); BILIRUBIN,TOTAL 0.3 MG/DL (0.1-1.0); CALCIUM 9.8 MG/DL (8.5-10.1); CREATININE SERUM 0.71 MG/DL (0.60-1.30); POTASSIUM 3.4 MMOL/L (3.6-5.0); TOTAL PROTEIN 6.5 GM/DL (6.4-8.2)
[2022-05-09 07:27] VITALS: BP 138/68
[2022-05-09] MEDS: SENNA W/DOCUSATE (SENOKOT S) TABLET PO SCH ×2 (08:18→20:43)
[2022-05-09] MEDS: ASCORBIC ACID (VIT C) 500 MG TABLET PO SCH (08:18)
[2022-05-09] MEDS: PANTOPRAZOLE 40 MG (PROTONIX) TAB PO SCH (08:18)
[2022-05-09] MEDS: MAGNESIUM OXIDE (MAG-OX)400 MG TAB PO SCH (08:18)
[2022-05-09] MEDS: FUROSEMIDE 40 MG (LASIX) TAB PO SCH (08:19)
[2022-05-09] MEDS: oxyCODONE/APAP 5/325MG (PERCOCET 5) TABLET PO SCH ×2 (08:19→20:11)
[2022-05-09] MEDS: KCL 10 MEQ TAB (MICRO K) PO SCH (08:19)
[2022-05-09] MEDS: guaiFENesin (MUCINEX) 600 MG TAB PO SCH ×2 (08:19→20:11)
[2022-05-09] MEDS: polyethylene glycoL POWDER 17 GM (MIRALAX) PACK PO SCH ×2 (08:20→20:43)
[2022-05-09] MEDS: ENOXAPARIN 40 MG/0.4 ML (LOVENOX) SYR SC SCH (08:20)
[2022-05-09] MEDS: GABAPENTIN 100 MG (NEURONTIN) CAP PO SCH ×2 (08:20→20:11)
[2022-05-09] MEDS: ATENOLOL 25 MG (TENORMIN) TAB PO SCH (08:20)
[2022-05-09] MEDS: CALCIUM CARB + VIT D 600 MG (CALCARB + D) TAB PO SCH (08:20)
--- NOTE | 2022-05-09 08:54 | Physical Therapy Progress Note ---
Therapy Progress Note Patient adamantly declined PT and became highly agitated. Due to agitation and patient's inability to calm, RN present and PT left room. 1 ref EAGLE DUNCAN PT May 09, 2022 08:54
[2022-05-09] MEDS: CLOTRIMAZOLE 1% CREAM (LOTRIMIN) 30 GM TP SCH (09:22)
[2022-05-09] MEDS: MUPIROCIN 2% OINT 22 GM (BACTROBAN) TUBE TOP SCH ×3 (09:22→20:12)
--- NOTE | 2022-05-09 11:15 | Progress Note - Hospitalist ---
Subjective HPI/CC On Admission Date Seen by Provider: May 09, 2022 Time Seen by Provider: 10:45 Subjective/Events-last exam Patient reports still feeling congested but a little less short of breath than yesterday. Still requiring Vapotherm 20/50 which maintain saturations in the mid 90 range. Patient coughing up clear sputum only when it had been more purulent/yellow per her report. Denies chills or fever. She was pleasant for me but she cussed out physical therapy refusing to get out of bed. Objective Exam Vital Signs Vital Signs Date Time Temp Pulse Resp B/P (MAP) Pulse Ox O2 Delivery O2 Flow Rate FiO2 05/09/22 10:45 92 Vapotherm 20.00 40 05/09/22 07:27 36.1 74 16 138/68 (91) Capillary Refill : Less Than 3 Seconds General Appearance: No Apparent Distress, Chronically ill, Obese Respiratory: No Accessory Muscle Use, No Respiratory Distress, Other (Markedly diminished breath sounds throughout with scattered rhonchi no wheezing noted on regular inspiration.) Cardiovascular: Regular Rate, Rhythm, Other ( Heart tones distant no murmurs appreciated rhythm regular) Extremity: Pedal Edema Results/Procedures Lab Laboratory Tests 05/09/22 05:34 Patient resulted labs reviewed. Assessment/Plan Assessment and Plan Assess & Plan/Chief Complaint Acute on Chronic respiratory failure with hypoxia Slowly improving patient noncompliant with physical therapy discussed the importance of moving as she is morbidly obese with significant underlying deconditioning. AECOPD - Titrated to vapotherm from bipap, will continue to monitor and titrate oxygen as tolerated - Continue IV steroids and antibiotics - Encouraged use of IS Elevated BNP - Echo nl with EF 60-65% Depression - Continue home meds DVT PPX - Lovenox SOLOMON MIMS MD May 09, 2022 11:15
[2022-05-09 12:00] VITALS: BP 144/796
[2022-05-09 15:14] VITALS: BP 129/69
[2022-05-09 19:31] VITALS: BP 141/66
[2022-05-09] MEDS: MONTELUKAST 10 MG (SINGULAIR) TAB PO SCH (20:11)
[2022-05-09 23:15] VITALS: BP 172/78
[2022-05-10] MEDS: RT-ALBUTEROL/IPRATROPIUM 3 ML (DUONEB) VIAL INH SCH ×4 (02:37→20:30)
[2022-05-10 03:31] VITALS: BP 146/70
[2022-05-10] MEDS: MULTIVIT W/MINERALS TAB (THERAGRAN M) PO SCH (05:27)
[2022-05-10] MEDS: methylPREDNISolone 40 MG/ML (Solu-MEDROL) VIAL IV SCH ×3 (05:27→19:44)
[2022-05-10] MEDS: CATHETER FLUSH 10 ML SYR IV SCH ×3 (05:28→19:45)
[2022-05-10 06:06] LABS: BASOPHILS % (AUTO) 0 % (0-10); EOSINOPHILS % (AUTO) 0 % (0-10); HEMATOCRIT 40 % (35-52); HEMOGLOBIN 13.5 g/dL (11.5-16.0); LYMPHOCYTES # (AUTO) 0.8 10^3/uL (1.0-4.0); LYMPHOCYTES % (AUTO) 7 % (12-44); MEAN CORPUSCULAR HEMOGLOBIN 33 pg (25-34); MEAN CORPUSCULAR HGB CONC 34 g/dL (32-36); MEAN CORPUSCULAR VOLUME 98 fL (80-99); MEAN PLATELET VOLUME 8.7 fL (9.0-12.2); MONOCYTES # (AUTO) 0.5 10^3/uL (0.0-1.0); MONOCYTES % (AUTO) 4 % (0-12); NEUTROPHILS # (AUTO) 10.6 10^3/uL (1.8-7.8); NEUTROPHILS % (AUTO) 88 % (42-75); PLATELET COUNT 291 10^3/uL (130-400); WHITE BLOOD COUNT 12.1 10^3/uL (4.3-11.0)
[2022-05-10 06:35] LABS: ALBUMIN 3.2 GM/DL (3.2-4.5); BILIRUBIN,TOTAL 0.4 MG/DL (0.1-1.0); CALCIUM 9.7 MG/DL (8.5-10.1); CREATININE SERUM 0.68 MG/DL (0.60-1.30); POTASSIUM 3.6 MMOL/L (3.6-5.0)
[2022-05-10] MEDS: FUROSEMIDE 40 MG (LASIX) TAB PO SCH (08:15)
[2022-05-10] MEDS: PANTOPRAZOLE 40 MG (PROTONIX) TAB PO SCH (08:15)
[2022-05-10] MEDS: ATENOLOL 25 MG (TENORMIN) TAB PO SCH (08:15)
[2022-05-10] MEDS: guaiFENesin (MUCINEX) 600 MG TAB PO SCH ×2 (08:15→19:44)
[2022-05-10] MEDS: GABAPENTIN 100 MG (NEURONTIN) CAP PO SCH ×2 (08:15→19:44)
[2022-05-10] MEDS: ASCORBIC ACID (VIT C) 500 MG TABLET PO SCH (08:15)
[2022-05-10] MEDS: MAGNESIUM OXIDE (MAG-OX)400 MG TAB PO SCH (08:15)
[2022-05-10] MEDS: CALCIUM CARB + VIT D 600 MG (CALCARB + D) TAB PO SCH (08:15)
[2022-05-10] MEDS: KCL 10 MEQ TAB (MICRO K) PO SCH (08:15)
[2022-05-10] MEDS: oxyCODONE/APAP 5/325MG (PERCOCET 5) TABLET PO SCH ×2 (08:16→19:44)
[2022-05-10] MEDS: ENOXAPARIN 40 MG/0.4 ML (LOVENOX) SYR SC SCH (08:16)
[2022-05-10] MEDS: MUPIROCIN 2% OINT 22 GM (BACTROBAN) TUBE TOP SCH ×3 (08:16→19:45)
[2022-05-10] MEDS: polyethylene glycoL POWDER 17 GM (MIRALAX) PACK PO SCH ×2 (08:16→19:40)
[2022-05-10] MEDS: SENNA W/DOCUSATE (SENOKOT S) TABLET PO SCH ×2 (08:16→19:45)
[2022-05-10] MEDS: CLOTRIMAZOLE 1% CREAM (LOTRIMIN) 30 GM TP SCH (08:17)
[2022-05-10 08:27] VITALS: BP 126/57
[2022-05-10] MEDS: RT--FLUTICASONE/SALMETEROL 232-14 (AIRDUO RespiCLICK) IH SCH ×2 (09:45→20:31)
[2022-05-10 11:46] VITALS: BP 121/55
--- NOTE | 2022-05-10 11:53 | Progress Note - Hospitalist ---
Subjective HPI/CC On Admission Date Seen by Provider: May 10, 2022 Time Seen by Provider: 11:49 Subjective/Events-last exam Patient reports slow improvement feeling less short of breath hoping to be discharged back to [facility]. Cough is productive of clear sputum only unchanged from yesterday. She denies chest pain or shortness of breath at rest. Objective Exam Vital Signs Vital Signs Date Time Temp Pulse Resp B/P (MAP) Pulse Ox O2 Delivery O2 Flow Rate FiO2 05/10/22 11:46 36.5 68 20 121/55 (77) 94 High Flow N/C 6.00 05/09/22 10:45 40 Capillary Refill : Less Than 3 Seconds General Appearance: No Apparent Distress, Chronically ill, Obese Respiratory: No Accessory Muscle Use, No Respiratory Distress, Other (Bibasilar rhonchi and coarse rales no wheezing noted unchanged from yesterday.) Cardiovascular: Regular Rate, Rhythm, No Edema, No Gallop, No JVD, No Murmur Results/Procedures Lab Laboratory Tests 05/10/22 05:28 Patient resulted labs reviewed. Assessment/Plan Assessment and Plan Assess & Plan/Chief Complaint Acute on Chronic respiratory failure with hypoxia Slowly improving patient noncompliant with physical therapy discussed the importance of moving as she is morbidly obese with significant underlying deconditioning. 05/10: Slow improvement in acute on chronic respiratory failure off Vapotherm on 6 L of oxygen with O2 saturations in the low to mid 90s discussed patient would need to demonstrate ability to get from 1 room to another without assistance for [facility]. If she demonstrates this ability then likely discharge the beginning of the week. AECOPD - Titrated to vapotherm from bipap, will continue to monitor and titrate oxygen as tolerated - Continue IV steroids and antibiotics - Encouraged use of IS Elevated BNP - Echo nl with EF 60-65% Depression - Continue home meds DVT PPX - Lovenox SOLOMON MIMS MD May 10, 2022 11:53
[2022-05-10 15:37] VITALS: BP 126/69
[2022-05-10 19:33] VITALS: BP 151/77
[2022-05-10] MEDS: MONTELUKAST 10 MG (SINGULAIR) TAB PO SCH (19:44)
[2022-05-10 23:43] VITALS: BP 162/78
[2022-05-11] MEDS: RT-ALBUTEROL/IPRATROPIUM 3 ML (DUONEB) VIAL INH SCH ×2 (02:51→07:47)
[2022-05-11 03:37] VITALS: BP 138/64
[2022-05-11] MEDS: CATHETER FLUSH 10 ML SYR IV SCH ×2 (05:35→09:56)
[2022-05-11] MEDS: MULTIVIT W/MINERALS TAB (THERAGRAN M) PO SCH (05:35)
[2022-05-11 05:56] LABS: BASOPHILS % (AUTO) 0 % (0-10); EOSINOPHILS % (AUTO) 0 % (0-10); HEMATOCRIT 39 % (35-52); HEMOGLOBIN 13.3 g/dL (11.5-16.0); LYMPHOCYTES # (AUTO) 0.8 10^3/uL (1.0-4.0); LYMPHOCYTES % (AUTO) 7 % (12-44); MEAN CORPUSCULAR HEMOGLOBIN 33 pg (25-34); MEAN CORPUSCULAR HGB CONC 34 g/dL (32-36); MEAN CORPUSCULAR VOLUME 97 fL (80-99); MEAN PLATELET VOLUME 8.6 fL (9.0-12.2); MONOCYTES # (AUTO) 0.7 10^3/uL (0.0-1.0); MONOCYTES % (AUTO) 6 % (0-12); NEUTROPHILS # (AUTO) 10.8 10^3/uL (1.8-7.8); NEUTROPHILS % (AUTO) 86 % (42-75); PLATELET COUNT 278 10^3/uL (130-400); WHITE BLOOD COUNT 12.6 10^3/uL (4.3-11.0)
[2022-05-11 06:20] LABS: ALBUMIN 3.1 GM/DL (3.2-4.5); BILIRUBIN,TOTAL 0.3 MG/DL (0.1-1.0); CREATININE SERUM 0.7 MG/DL (0.60-1.30); POTASSIUM 3.4 MMOL/L (3.6-5.0); TOTAL PROTEIN 5.8 GM/DL (6.4-8.2)
[2022-05-11] MEDS: RT--FLUTICASONE/SALMETEROL 232-14 (AIRDUO RespiCLICK) IH SCH (07:47)
[2022-05-11 08:22] VITALS: BP 138/60
[2022-05-11] MEDS: SENNA W/DOCUSATE (SENOKOT S) TABLET PO SCH (09:16)
[2022-05-11] MEDS: MUPIROCIN 2% OINT 22 GM (BACTROBAN) TUBE TOP SCH ×2 (09:20→13:29)
[2022-05-11] MEDS: polyethylene glycoL POWDER 17 GM (MIRALAX) PACK PO SCH (09:20)
[2022-05-11] MEDS: CLOTRIMAZOLE 1% CREAM (LOTRIMIN) 30 GM TP SCH (09:21)
[2022-05-11] MEDS: GABAPENTIN 100 MG (NEURONTIN) CAP PO SCH (09:30)
[2022-05-11] MEDS: CALCIUM CARB + VIT D 600 MG (CALCARB + D) TAB PO SCH (09:31)
[2022-05-11] MEDS: ATENOLOL 25 MG (TENORMIN) TAB PO SCH (09:31)
[2022-05-11] MEDS: ASCORBIC ACID (VIT C) 500 MG TABLET PO SCH (09:31)
[2022-05-11] MEDS: MAGNESIUM OXIDE (MAG-OX)400 MG TAB PO SCH (09:31)
[2022-05-11] MEDS: guaiFENesin (MUCINEX) 600 MG TAB PO SCH (09:31)
[2022-05-11] MEDS: oxyCODONE/APAP 5/325MG (PERCOCET 5) TABLET PO SCH (09:31)
[2022-05-11] MEDS: PANTOPRAZOLE 40 MG (PROTONIX) TAB PO SCH (09:31)
[2022-05-11] MEDS: FUROSEMIDE 40 MG (LASIX) TAB PO SCH (09:31)
[2022-05-11] MEDS: KCL 10 MEQ TAB (MICRO K) PO SCH (09:31)
[2022-05-11] MEDS: methylPREDNISolone 40 MG/ML (Solu-MEDROL) VIAL IV SCH (09:32)
[2022-05-11] MEDS: ENOXAPARIN 40 MG/0.4 ML (LOVENOX) SYR SC SCH (09:32)
--- NOTE | 2022-05-11 09:53 | Physical Therapy Progress Note ---
Therapy Progress Note Patient continues to refuse PT. RN and physician are aware. 1 ref EAGLE DUNCAN PT May 11, 2022 09:52
--- NOTE | 2022-05-11 10:13 | Occupational Ther Daily Note ---
OT Current Status-Daily Note Subjective Reclined in bed, completed breakfast, agrees to OT Mental Status/Objective Patient Orientation: Situation (decreased organizational thougth w/ conver sation) Attachments: Dutta Catheter, Oxygen Patient reports the smells of this place make her angry ADL-Treatment Therapy Code Descriptions/Definitions Functional [place] Measure: 0=Not Assessed/NA 4=Minimal Assistance 1=Total Assistance 5=Supervision or Setup 2=Maximal Assistance 6=Modified [place] 3=Moderate Assistance 7=Complete IndependenceSCALE: Activities may be completed with or without assistive devices. 8-Mgaqceihid-mivcqlf completes the activity by him/herself with no assistance fr om a helper. 5-Set-up or Clean-up Assistance-helper sets up or cleans up; patient completes activity. [place] assists only prior to or following the activity. 4-Supervision or Touching Assistance-helper provides verbal cues and/or touching/steadying and/or contact guard assistance as patient completes activity. Assistance may be provided throughout the activity or intermittently. 3-Partial/Moderate Assistance-helper does LESS THAN HALF the effort. [place] lifts, holds or supports trunk or limbs, but provides less than half the effort. 2-Substantial/Maximal Assistance-helper does MORE THAN HALF the effort. [place] lifts or holds trunk or limbs and provides more than half the effort. 4-Ndsuckgcg-bufkbf does ALL the effort. Patient does none of the effort to complete the activity. Or, the assistance of 2 or more helpers is required for the patient to complete the activity. If activity was not attempted, code reason: 7-Patient Refused. 9-Not Applicable-not attempted and the patient did not perform the activity before the current illness, exacerbation or injury. 10-Not Attempted due to Environmental Limitations-(lack of equipment, weather restraints, etc.). 88-Not Attempted due to Medical Conditions or Safety Concerns. Eating (QC): 6 Oral Hygiene (QC): 5 Shower/Bathe Self (QC): 7 (refused) Upper Body Dressing (QC): 5 Lower Body Dressing (QC): 5 On/Off Footwear: 5 Toileting Hygiene (QC): 4 Toilet Transfer (QC): 5 (SBA w/ FWW) Patient manages 5 pillows on recliner for comfort, reports she does not sleep in a bed in [place]. OT provided SBA for safe functional reach. Patient wants to go home Education OT Patient Education: Energy conservation, Exercise program (sit/standa nd Arm chair push ups), Progress toward Goal/Update tx plan, Purpose of tx/functional activities, Rehab process, Safety issues, Transfer techniques Teaching Recipient: Patient Teaching Methods: Demonstration, Discussion Response to Teaching: Verbalize Understanding OT Prison Goals Prison Goals Oral Hygiene (QC): 6 Toileting Hygiene (QC): 6 Shower/Bathe Self (QC): 6 Upper Body Dressing (QC): 6 Lower Body Dressing (QC): 6 On/Off Footwear (QC): 6 1=Demonstrate adherence to instructed precautions during ADL tasks. 2=Patient will verbalize/demonstrate understanding of assistive devices/modifications for ADL. 3=Patient will improve strength/tolerance for activity to enable patient to perform ADL's. OT Education/Plan Problem List/Assessment Assessment: Decreased Activ Tolerance, Impaired Self-Care Skills Discharge Recommendations Plan/Recommendations: Continue POC Treatment Plan/Plan of Care Patient would benefit from OT for education, treatment and training to promote independence in ADL's, mobility, safety and/or upper extremity function for ADL's. Plan of Care: ADL Retraining, Concurrent Therapy, Functional Mobility, Group Exercise/Act as Ind, UE Funct Exercise/Act Treatment Duration: May 16, 2022 Frequency: 3 times per week (3-5 times per week) Estimated Hrs Per Day: .25 hour per day Agreement: Yes Rehab Potential: Fair Time Start Time: 08:38 Stop Time: 09:05 DATE: May 11, 2022 Total Time Billed (hr/min): 27 Billed Treatment Time ADL 2 27 min ABDULAZIZ LOVE OT May 11, 2022 10:13
[2022-05-11] MEDS ORDERED: IPRA3AMP31 INH (10:51)
[2022-05-11] MEDS ORDERED: PRED10TA22 PO (10:51)
[2022-05-11] MEDS ORDERED: MONT-40 PO (10:51)
--- NOTE | 2022-05-11 10:52 | D/C HH Face to Face Order ---
D/C HH Face to Face Orders Reconcile Patient Problems Problems Reviewed?: Yes Instructions for Patient HH Patient Instructions/FollowUp: PCP 1 week Physician to follow Patient: [facility] Discharge Diet for Home: No Restrictions Patient Problems: COPD end stage Patient Data-Allergies,Ht & Wt Patient Allergies: Coded Allergies: Sulfa (Sulfonamide Antibiotics) (Verified Allergy, Unknown, 02/26/22) Home Health Need/Face to Face Date of Face to Face: May 11, 2022 Clinical Findings: Generalized weakness and fatigue, Instability, Shortness of breath I have seen Pt [id number]: Yes Discharged To: Home Diagnosis/Conditions: COPD Patient is Homebound due to: Muscle weakness, Shortness of breath/distress Homebound Status Due to the above stated illness, injury or surgical procedure (medical condition or diagnosis) and associated clinical findings, the patient is homebound because of his/her inability to leave home except with aid of a supportive device and/or person AND leaving the home requires a considerable and taxing effort or is medically contraindicated. Pt req the following assistanc: [facility] Nursing Orders Home Health Services Order: Medical Practice Manager-Evaluate & Treat, Physical Therapy-Evaluate & Treat Home Health Infusion Therapy Line Start Date: May 04, 2022 Certify Stmt I certify that this patient is under my care and that I, a nurse practitioner or a physician; a mortgage assistant working with me, had a face to face encounter that - meets the physician face to face encounter requirements with this patient as dated. NITHIN AYALA DO May 11, 2022 10:52
--- NOTE | 2022-05-11 10:53 | Discharge Summary ---
Discharge Summary Hospital Course Was the Problem List Reviewed?: Yes Problems/Dx: (1) COPD exacerbation Status: Acute (2) Acute on chronic respiratory failure with hypoxia Status: Acute Hospital Course Date of Admission: May 04, 2022 at 12:59 Admission Diagnosis : Family Physician/Provider: Date of Discharge: 05/11/22 Discharge Diagnosis: [ ] Hospital Course: Lengthy course after admitted for RICHARD with AECOPD requiring Vapotherm. Home meds restarted. Overall had several days of Vapotherm but finally decreased to NC 5L/min. Patient was weaned down off IV steroids and ultimately was able to return to [place] with HH. Labs and Pending Lab Test: Laboratory Tests 05/11/22 05:12: White Blood Count 12.6H, Red Blood Count 4.06, Hemoglobin 13.3, Hematocrit 39, Mean Corpuscular Volume 97, Mean Corpuscular Hemoglobin 33, Mean Corpuscular Hemoglobin Concent 34, Red Cell Distribution Width 13.0, Platelet Count 278, Mean Platelet Volume 8.6L, Immature Granulocyte % (Auto) 2, Neutrophils (%) (Au to) 86H, Lymphocytes (%) (Auto) 7L, Monocytes (%) (Auto) 6, Eosinophils (%) (Auto) 0, Basophils (%) (Auto) 0, Neutrophils # (Auto) 10.8H, Lymphocytes # (Auto) 0.8L, Monocytes # (Auto) 0.7, Eosinophils # (Auto) 0.0, Basophils # (Auto) 0.0, Immature Granulocyte # (Auto) 0.2H, Sodium Level 132L, Potassium Level 3.4L, Chloride Level 94L, Carbon Dioxide Level 27, Anion Gap 11, Blood Urea Nitrogen 20H, Creatinine 0.70, Estimat Glomerular Filtration Rate 97, BUN/Creatinine Ratio 29, Glucose Level 180H, Calcium Level 9.0, Corrected Calcium 9.7, Total Bilirubin 0.3, Aspartate Amino Transf (AST/SGOT) 21, Alanine Aminotransferase (ALT/SGPT) 32, Alkaline Phosphatase 87, Total Protein 5.8L, Albumin 3.1L Microbiology 05/04/22 Blood Culture - Final, Complete Staph, Coag Neg (CUSTOMER SUPPORT PROFESSIONAL) See Comments Home Meds Active Prednisone 10 Mg Tab.ds.pk 10 Mg PO DAILY Take 6 tabs(60mg)daily,decrease by 1 tab(10MG)daily. Montelukast Sodium 10 Mg Tablet 10 Mg PO HS Iprat-Albut 0.5-3(2.5) mg/3 ml (Ipratropium/Albuterol Sulfate) 0.5 Mg-3 Mg (2.5 Mg Base)/3 Ml Ampul.neb 3 Ml INH RTQ6HR Reported K-Tab ER (Potassium Chloride) 10 Meq Tablet.er 10 Meq PO DAILY Gabapentin 100 Mg Capsule 100 Mg PO BID Benadryl Allergy (Diphenhydramine HCl) 25 Mg Tablet 25-50 Mg PO BID PRN Ventolin Hfa (Albuterol Sulfate) 90 Mcg Hfa.aer.ad 2 Puff INH Q4H PRN Mupirocin 2 % Oint...g. 1 Applic TOP TID Clotrimazole 1 % Cream..g. 1 Applic TP DAILY Oxycodone-Acetaminophen 5-325 (Oxycodone HCl/Acetaminophen) 5 Mg-325 Mg Tablet 1 Ea PO BID Symbicort 160-4.5 Mcg Inhaler (Budesonide/Formoterol Fumarate) 160 Mcg-4.5 Mcg/Actuation Hfa.aer.ad 2 Puff INH BID Calcium 600 + Vit D3 Tablet (Calcium Carbonate/Vitamin D3) 600 Mg Calcium-10 Mcg (400 Unit) Tablet 2 Each PO DAILY Magnesium (Magnesium Oxide) 400 Mg Magnesium Tablet 400 Mg PO DAILY Vitamin C (Ascorbate Calcium) 500 Mg Tablet 500 Mg PO DAILY Multivitamin 1 Each Tablet 1 Each PO DAILY Omeprazole 40 Mg Capsule.dr 40 Mg PO DAILY Mucinex (Guaifenesin) 1,200 Mg Tab.er.12h 600 Mg PO BID TAKES OF A 1200NG Furosemide 40 Mg Tablet 40 Mg PO DAILY Citalopram HBr (Citalopram Hydrobromide) 20 Mg Tablet 20 Mg PO DAILY Atorvastatin Calcium 40 Mg Tablet 40 Mg PO HS Atenolol 100 Mg Tablet 100 Mg PO DAILY Assessment/Pt Instructions PCP 1 week Discharge Planning: <30 minutes discharge planning Discharge Physical Examination Vital Signs Vital Signs Date Time Temp Pulse Resp B/P (MAP) Pulse Ox O2 Delivery O2 Flow Rate FiO2 05/11/22 08:22 36.0 87 18 138/60 (86) 94 High Flow N/C 6.00 05/09/22 10:45 40 General Appearance: No Apparent Distress, WD/WN, Chronically ill Respiratory: No Accessory Muscle Use, No Respiratory Distress, Crackles, Decreased Breath Sounds Cardiovascular: Regular Rate, Rhythm Neurologic/Psychiatric: Alert, Oriented x3, No Motor/Sensory Deficits, Normal Mood/Affect Allergies: Coded Allergies: Sulfa (Sulfonamide Antibiotics) (Verified Allergy, Unknown, 02/26/22) Discharge Summary Date of Admission May 04, 2022 at 12:59 Date of Discharge Discharge Date: May 11, 2022 Discharge Diagnosis Acute on Chronic respiratory failure with hypoxia AECOPD - Titrated to vapotherm from bipap, will continue to monitor and titrate oxygen as tolerated - Continue IV steroids and antibiotics - Encouraged use of IS Elevated BNP - Echo nl with EF 60-65% Depression - Continue home meds DVT PPX - Lovenox NITHIN AYALA DO May 11, 2022 10:53
[2022-05-11 12:06] VITALS: BP 139/73
--- NOTE | 2022-05-11 14:50 | Progress Note ---
CHELSEA STREETER 05/11/22 1450: Progress Note Hospital Course: Angle Morrow is a 62 yo F w/ hx of COPD on 3-4L home o2 who presented to ED with dyspnea, SOB, and increased sputum. She was admitted for acute on chronic hypoxic respiratory failure and started on IV steroids and abx. Her CXR was without acute processe, her blood cxs grew contaminants, and her BNP was at 125. She was placed on bipap for low o2 sats. She was weaned off bipap and switched to vapotherm on 05/05 and maintained sats in mid 90s. She was slow to recover after this and was eventually weaned off of vapotherm and onto NC on 05/10. Angle was titrated down to 6L with sats in the low to mid 90s. During her stay an echocardiography was performed and revealed an EF of 60-65%, without significant systolic or diastolic dysfunction. SHEA AYALA DO 05/12/22 0454: Supervisory-Addendum Brief Verification & Attestation Participated in pt care: history, MDM, physical Personally performed: exam, history, MDM, supervision of care Care discussed with: Medical Student Procedures: n/a Results interpretation: Verified all documentation Verification and Attestation of Medical Student E/M Service A medical student performed and documented this service in my presence. I reviewed and verified all information documented by the medical student and made modifications to such information, when appropriate. I personally performed the physical exam and medical decision making. Shea Ayala May 12, 2022,04:[address] May 11, 2022 14:50 SHEA AYALA DO May 12, 2022 04:54
== END 2022-05-11 15:08 | DRG 189 ==
LOC: EDUNIT# 10:09 → ER FS 10:12 → OBSVTOIN 12:59 → CSD 12:59 → 4TH 05-08 14:09
PROVIDERS: ADMIT Family Medicine; ATTEND Internal Medicine
PROC: 5A09357 Assistance with Respiratory Ventilation, Less than 24 Consecutive Hours, Continuous Positive Airway Pressure (ICD-10-PCS; principal; 2022-05-04)
PROC: 5A0945A Assistance with Respiratory Ventilation, 24-96 Consecutive Hours, High Flow/Velocity Cannula (ICD-10-PCS; 2022-05-06)
DX: J96.21 Acute and chronic respiratory failure with hypoxia (principal); J44.1 Chronic obstructive pulmonary disease with (acute) exacerbation; F32.A Depression, unspecified; E66.01 Morbid (severe) obesity due to excess calories; Z99.81 Dependence on supplemental oxygen; Z68.37 Body mass index [BMI] 37.0-37.9, adult; Z20.822 Contact with and (suspected) exposure to COVID-19; Z85.3 Personal history of malignant neoplasm of breast; Z90.12 Acquired absence of left breast and nipple; Z88.2 Allergy status to sulfonamides
CPT/HCPCS: 36415; 71045; 80048; 80053; 82805; 83605; 83880; 84145; 84484; 85007; 85025; 85027; 87040; 87636; 93005; 93306; 94640; 94660; 94760; 94761

== ENCOUNTER 2022-09-23 14:34 | Emergency (ER) | payer MEDICARE, MEDICAID ==
[~2022-09-23 14:34] MED LIST changes: +ALBU18HF2 INH; +ASCO-262 PO; +ATEN100T PO; +ATOR40TA70 PO; +BUDE10.2 INH; +CALC-192 PO; +CITA20TA9 PO; +CLOT15CR28 TP; +DIPH25TA65 PO; +FURO40TA4 PO; +GABA-486 PO; +GUAI120013 PO; +IPRA3AMP31 INH; +MAGN400T39 PO; +MONT-40 PO; +MULT-1136 PO; +MUPI22OI2 TOP; +OMEP40CA6 PO; +OXYC1TAB11 PO; +POTA-185 PO; +PRED10TA22 PO
[2022-09-23] MEDS ORDERED: RT-ALBUTEROL/IPRATROPIUM 3 ML (DUONEB) VIAL ONE (14:38)
--- NOTE | 2022-09-23 14:39 | ED General ---
General Stated Complaint: SOB History of Present Illness Date Seen by Provider: Sep 23, 2022 Time Seen by Provider: 14:38 Initial Comments 62-year-old female brought in by EMS. EMS was called to the long term because patient was "short of breath" patient has chronic COPD and chronic back pain that she is complaining of back pain along with her COPD. When asked patient why she is here she says "I do not know" and then states that she is "not talking" history is very difficult to obtain as patient is very uncooperative. Patient does have a baseline 2 to 4 L O2 per nasal cannula. Allergies and Home Medications Allergies Coded Allergies: Sulfa (Sulfonamide Antibiotics) (Verified Allergy, Unknown, 02/26/22) Patient Home Medication List Home Medication List Reviewed: Yes Albuterol Sulfate (Ventolin Hfa) 90 Mcg Hfa.aer.ad, 2 PUFF INH Q4H PRN for SHORTNESS OF BREATH, (Reported) Entered as Reported by: ALEJANDRA YOUNG on 05/04/221524 Ascorbate Calcium (Vitamin C) 500 Mg Tablet, 500 MG PO DAILY, (Reported) Entered as Reported by: ALEJANDRA YOUNG on 05/04/221524 Atenolol (Atenolol) 100 Mg Tablet, 100 MG PO DAILY, (Reported) Entered as Reported by: ALEJANDRA YOUNG on 05/04/221524 Atorvastatin Calcium (Atorvastatin Calcium) 40 Mg Tablet, 40 MG PO HS, (Reported) Entered as Reported by: ALEJANDRA YOUNG on 05/04/221524 Budesonide/Formoterol Fumarate (Symbicort 160-4.5 Mcg Inhaler) 160 Mcg-4.5 Mcg/Actuation Hfa.aer.ad, 2 PUFF INH BID, (Reported) Entered as Reported by: ALEJANDRA YOUNG on 05/04/221524 Calcium Carbonate/Vitamin D3 (Calcium 600 + Vit D3 Tablet) 600 Mg Calcium-10 Mcg (400 Unit) Tablet, 2 EACH PO DAILY, (Reported) Entered as Reported by: ALEJANDRA YOUNG on 05/04/221524 Citalopram Hydrobromide (Citalopram HBr) 20 Mg Tablet, 20 MG PO DAILY, (Reported) Entered as Reported by: ALEJANDRA YOUNG on 05/04/221524 Clotrimazole (Clotrimazole) 1 % Cream..g., 1 APPLIC TP DAILY, (Reported) Entered as Reported by: ALJEANDRA YOUNG on 05/04/221524 Diphenhydramine HCl (Benadryl Allergy) 25 Mg Tablet, 25-50 MG PO BID PRN for ALLERGY SYMPTOMS, (Reported) Entered as Reported by: ALEJANDRA YOUNG on 05/04/221524 Furosemide (Furosemide) 40 Mg Tablet, 40 MG PO DAILY, (Reported) Entered as Reported by: ALEJANDRA YOUNG on 05/04/221524 Gabapentin (Gabapentin) 100 Mg Capsule, 100 MG PO BID, (Reported) Entered as Reported by: ALEJANDRA YOUNG on 05/04/221524 Guaifenesin (Mucinex) 1,200 Mg Tab.er.12h, 600 MG PO BID, (Reported) Entered as Reported by: ALEJANDRA YOUNG on 05/04/221524 Ipratropium/Albuterol Sulfate (Iprat-Albut 0.5-3(2.5) mg/3 ml) 0.5 Mg-3 Mg (2.5 Mg Base)/3 Ml Ampul.neb, 3 ML INH RTQ6HR Prescribed by: NITHIN AYALA on 05/11/22 105 Magnesium Oxide (Magnesium) 400 Mg Magnesium Tablet, 400 MG PO DAILY, (Reported) Entered as Reported by: ALEJANDRA YOUNG on 05/04/221524 Montelukast Sodium (Montelukast Sodium) 10 Mg Tablet, 10 MG PO HS Prescribed by: NITHIN AYALA on 05/11/22 105 Multivitamin (Multivitamin) 1 Each Tablet, 1 EACH PO DAILY, (Reported) Entered as Reported by: ALEJANDRA YOUNG on 05/04/221524 Mupirocin (Mupirocin) 2 % Oint...g., 1 APPLIC TOP TID, (Reported) Entered as Reported by: ALEJANDRA YOUNG on 05/04/221524 Omeprazole (Omeprazole) 40 Mg Capsule.dr, 40 MG PO DAILY, (Reported) Entered as Reported by: ALEJANDRA YOUNG on 05/04/221524 Oxycodone HCl/Acetaminophen (Oxycodone-Acetaminophen 5-325) 5 Mg-325 Mg Tablet, 1 EA PO BID, (Reported) Entered as Reported by: ALEJANDRA YOUNG on 05/04/22 1525 Potassium Chloride (K-Tab ER) 10 Meq Tablet.er, 10 MEQ PO DAILY, (Reported) Entered as Reported by: ALEJANDRA YOUNG on 05/04/22 1525 Prednisone (Prednisone) 10 Mg Tab.ds.pk, 10 MG PO DAILY Prescribed by: NITHIN AYALA on 05/11/22 1051 Review of Systems Review of Systems Constitutional: see HPI Respiratory: see HPI Cardiovascular: no symptoms reported Gastrointestinal: no symptoms reported Genitourinary: no symptoms reported Musculoskeletal: no symptoms reported Skin: no symptoms reported Past Coxzphs-Qzlphh-Gwfgfv Hx Past Medical History Surgery/Hospitalization HX: COPD, Breast cancer with left mastectomy, Tobacco abuse Surgeries: Yes Breast, Vascular Surgery COPD Family Medical History No Pertinent Family Hx Physical Exam Vital Signs Vital Signs - First Documented 09/23/22 09/23/22 14:35 14:45 Temp 36.5 Pulse 89 Resp 20 B/P (MAP) 161/93 (115) Pulse Ox 94 O2 Delivery Nasal Cannula O2 Flow Rate 4.00 Capillary Refill : Height, Weight, BMI Height: '" Weight: lbs. oz. kg; 37.52 BMI Method: General Appearance: No Apparent Distress, Chronically ill Respiratory: Decreased Breath Sounds (Mild diffuse) Cardiovascular: Regular Rate, Rhythm Extremity: Normal Capillary Refill Neurologic/Psychiatric: Alert, Other (Uncooperative) Progress/Results/Core Measures Suspected Sepsis SIRS Temperature: Pulse: Respiratory Rate: Laboratory Tests 09/23/22 14:51: White Blood Count 8.8 Blood Pressure / Mean: Laboratory Tests 09/23/22 14:51: Creatinine 0.57L, Platelet Count 216, Total Bilirubin 0.3 Results/Orders Lab Results Laboratory Tests Test 09/23/22 14:51 Range/Units White Blood Count 8.8 4.3-11.0 10^3/uL Red Blood Count 4.31 3.80-5.11 10^6/uL Hemoglobin 13.9 11.5-16.0 g/dL Hematocrit 45 35-52 % Mean Corpuscular Volume 104 H 80-99 fL Mean Corpuscular Hemoglobin 32 25-34 pg Mean Corpuscular Hemoglobin Concent 31 L 32-36 g/dL Red Cell Distribution Width 12.5 10.0-14.5 % Platelet Count 216 130-400 10^3/uL Mean Platelet Volume 9.1 9.0-12.2 fL Immature Granulocyte % (Auto) 0 % Neutrophils (%) (Auto) 79 H 42-75 % Lymphocytes (%) (Auto) 12 12-44 % Monocytes (%) (Auto) 7 0-12 % Eosinophils (%) (Auto) 1 0-10 % Basophils (%) (Auto) 1 0-10 % Neutrophils # (Auto) 7.0 1.8-7.8 10^3/uL Lymphocytes # (Auto) 1.1 1.0-4.0 10^3/uL Monocytes # (Auto) 0.6 0.0-1.0 10^3/uL Eosinophils # (Auto) 0.0 0.0-0.3 10^3/uL Basophils # (Auto) 0.0 0.0-0.1 10^3/uL Immature Granulocyte # (Auto) 0.0 0.0-0.1 10^3/uL Sodium Level 144 135-145 MMOL/L Potassium Level 4.5 3.6-5.0 MMOL/L Chloride Level 96 L 98-107 MMOL/L Carbon Dioxide Level 38 H 21-32 MMOL/L Anion Gap 10 5-14 MMOL/L Blood Urea Nitrogen 15 7-18 MG/DL Creatinine 0.57 L 0.60-1.30 MG/DL Estimat Glomerular Filtration Rate 101 BUN/Creatinine Ratio 26 Glucose Level 101 70-105 MG/DL Calcium Level 11.0 H 8.5-10.1 MG/DL Corrected Calcium 11.4 H 8.5-10.1 MG/DL Magnesium Level 1.9 1.6-2.4 MG/DL Total Bilirubin 0.3 0.1-1.0 MG/DL Aspartate Amino Transf (AST/SGOT) 25 5-34 U/L Alanine Aminotransferase (ALT/SGPT) 16 0-55 U/L Alkaline Phosphatase 166 H 40-136 U/L Total Protein 7.0 6.4-8.2 GM/DL Albumin 3.5 3.2-4.5 GM/DL My Orders Orders - HANCOCK,LC L DO Cbc With Automated Diff (09/23/22 14:39) Comprehensive Metabolic Panel (09/23/22 14:39) Magnesium (09/23/22 14:39) Ua Culture If Indicated (09/23/22 14:39) Chest 1 View Ap/Pa Only (09/23/22 14:39) Albuterol/Ipra Inhalation Soln (Duoneb I (09/23/22 14:45) Svn Small Volume Nebulizer (09/23/22 14:39) Albuterol/Ipra Inhalation Soln (Duoneb I (09/23/22 14:38) Dexamethasone Injection (Dexamethasone (09/23/22 16:00) Medications Given in ED Current Medications Medications Dose Ordered Sig/Wallace Route Start Time Stop Time Status Last Admin Dose Admin Albuterol/ Ipratropium 3 ml ONCE ONCE INH 09/23/22 14:45 09/23/22 14:46 DC 09/23/22 14:59 3 ML Vital Signs/I&O 09/23/22 09/23/22 14:35 14:45 Temp 36.5 Pulse 89 Resp 20 B/P (MAP) 161/93 (115) Pulse Ox 94 O2 Delivery Nasal Cannula Nasal Cannula O2 Flow Rate 4.00 4.00 Capillary Refill : Diagnostic Imaging Diagonstic Imaging: Xray Plain Films/CT/US/NM/MRI: chest Comments Date of Exam:09/23/22 CHEST 1 VIEW AP/PA ONLY CLINICAL INDICATION: Patient with shortness of breath. EXAM: Portable chest x-ray upright view. COMPARISON: Chest x-ray dated 05/04/2022. FINDINGS: There are small bilateral pleural effusions which have increased in size in the interim. There is interval progression of bibasilar atelectasis versus infiltrates. There is development of discoid atelectasis in the left midlung field region. There is no pneumothorax. Pulmonary vasculature is within normal limits. Cardiac silhouette is within normal limits and slightly obscured. Port-A-Cath is seen overlying the right chest with tip in stable position on the high right atrial region. There are degenerative spurs involving the thoracic spine. The remainder of this exam shows no significant interval change compared to the prior study of comparison. IMPRESSION: 1: There is interval progression of small bilateral pleural effusions and bibasilar atelectasis versus infiltrates. 2: The remainder of this exam shows no significant interval change compared to the prior study of comparison. Departure Impression Primary Impression: COPD with exacerbation Additional Impression: Pleural effusion Disposition: 01 HOME, SELF-CARE Condition: Stable Departure-Patient Inst. Referrals: DOMENICO MASON MD (PCP) Primary Care Physician Patient Instructions: COPD Exacerbation, Adult ED Add. Discharge Instructions: follow up with pcp in 5 days for recheck, sooner if needed. Scripts Doxycycline Hyclate (Doxycycline Hyclate) 100 Mg Tablet 100 MG PO BID, #20 TAB 0 Refills Prov: LC HANCOCK DO 09/23/22 LC HANCOCK DO Sep 23, 2022 14:38
[2022-09-23] MEDS ORDERED: RT-ALBUTEROL/IPRATROPIUM 3 ML (DUONEB) VIAL INH ONE (14:45)
[2022-09-23 14:56] LABS: BASOPHILS % (AUTO) 1 % (0-10); EOSINOPHILS % (AUTO) 1 % (0-10); HEMATOCRIT 45 % (35-52); HEMOGLOBIN 13.9 g/dL (11.5-16.0); LYMPHOCYTES # (AUTO) 1.1 10^3/uL (1.0-4.0); LYMPHOCYTES % (AUTO) 12 % (12-44); MEAN CORPUSCULAR HEMOGLOBIN 32 pg (25-34); MEAN CORPUSCULAR HGB CONC 31 g/dL (32-36); MEAN CORPUSCULAR VOLUME 104 fL (80-99); MEAN PLATELET VOLUME 9.1 fL (9.0-12.2); MONOCYTES # (AUTO) 0.6 10^3/uL (0.0-1.0); MONOCYTES % (AUTO) 7 % (0-12); NEUTROPHILS % (AUTO) 79 % (42-75); PLATELET COUNT 216 10^3/uL (130-400); WHITE BLOOD COUNT 8.8 10^3/uL (4.3-11.0)
--- NOTE | 2022-09-23 15:04 | Diagnostic Imaging Report ---
CLINICAL INDICATION: Patient with shortness of breath. EXAM: Portable chest x-ray upright view. COMPARISON: Chest x-ray dated 05/04/2022. FINDINGS: There are small bilateral pleural effusions which have increased in size in the interim. There is interval progression of bibasilar atelectasis versus infiltrates. There is development of discoid atelectasis in the left midlung field region. There is no pneumothorax. Pulmonary vasculature is within normal limits. Cardiac silhouette is within normal limits and slightly obscured. Port-A-Cath is seen overlying the right chest with tip in stable position on the high right atrial region. There are degenerative spurs involving the thoracic spine. The remainder of this exam shows no significant interval change compared to the prior study of comparison. IMPRESSION: 1: There is interval progression of small bilateral pleural effusions and bibasilar atelectasis versus infiltrates. 2: The remainder of this exam shows no significant interval change compared to the prior study of comparison. Dictated by: Dictated on workstation # [id number]
[2022-09-23 15:31] LABS: ALBUMIN 3.5 GM/DL (3.2-4.5); BILIRUBIN,TOTAL 0.3 MG/DL (0.1-1.0); CREATININE SERUM 0.57 MG/DL (0.60-1.30); MAGNESIUM 1.9 MG/DL (1.6-2.4); POTASSIUM 4.5 MMOL/L (3.6-5.0)
[2022-09-23] MEDS ORDERED: DOXY100T2 PO (15:52)
[2022-09-23] MEDS ORDERED: dexAMETHasone INJ 10 MG/ML 1 ML VIAL IV ONE (16:00)
[2022-09-23 16:13] VITALS: BP 154/83
== END 2022-09-23 16:13 | disposition home or self-care (01) ==
LOC: EDUNIT# 14:34 → ER FS 14:34
DX: J44.1 Chronic obstructive pulmonary disease with (acute) exacerbation (principal); J90 Pleural effusion, not elsewhere classified; Z99.81 Dependence on supplemental oxygen; Z88.2 Allergy status to sulfonamides
CPT/HCPCS: 36415; 71045; 80053; 83735; 85025; 94640; 96374